=== PATIENT | female | born 1980 | race Caucasian/White ===

== ENCOUNTER 2020-12-04 21:43 | Inpatient (IN) | payer OTHER, SELFPAY ==
[2020-12-04 22:29] VITALS: BMI 22.7
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
--- NOTE | 2020-12-04 23:14 | PC.ADMIT ---
Pt is a 40 year old female who presents to from [facility] at approx 22:15 on a cv status. Pt is covid- Utox+ Female presented to [facility] after intentional OD on Motrin PM (20 Tablets). Pt verbalized that she attepmted to her her life. Pt had two recent suicide attempts in less than a week by overdose with Motrin. Pt stated she is homeless. Pt denied SI/HI/AVH and pain.
[2020-12-05 06:00] VITALS: BP 98/59; PULSE 112; RESP 17; TEMP 36; O2SAT 97
[2020-12-05] MEDS: Gabapentin 600 MG TABLET PO ×3 (09:05→21:10)
[2020-12-05] MEDS: Ziprasidone 40 MG CAPSULE PO ×2 (09:05→21:10)
[2020-12-05] MEDS: Topiramate 25 MG TABLET PO ×2 (09:05→21:10)
[2020-12-05] MEDS: clonazePAM 1 MG TABLET PO ×3 (09:07→21:10)
[2020-12-05] MEDS: Nicotine 21 MG PATCH.TD24 TRANSDERMA (09:13)
[2020-12-05] MEDS: chlorproMAZINE HCl 100 MG TABLET PO ×4 (10:27→23:22)
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
[2020-12-05 16:31] VITALS: BP 112/68; PULSE 117; TEMP 36.7
[2020-12-05] MEDS: Nortriptyline HCl 25 MG CAPSULE PO (21:10)
[2020-12-05] MEDS: LORazepam 1 MG TABLET 2 MG PO (22:00)
[2020-12-05] MEDS: traZODone HCL 50 MG TABLET 150 MG PO ×2 (22:01→23:21)
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
[2020-12-06 06:00] VITALS: BP 105/64; PULSE 120; RESP 16; TEMP 36.6; O2SAT 99
[2020-12-06] MEDS: clonazePAM 1 MG TABLET PO ×3 (08:10→20:12)
[2020-12-06] MEDS: Nicotine 21 MG PATCH.TD24 TRANSDERMA (08:10)
[2020-12-06] MEDS: Gabapentin 600 MG TABLET PO ×3 (08:10→20:12)
[2020-12-06] MEDS: Topiramate 25 MG TABLET PO ×2 (08:11→20:12)
[2020-12-06] MEDS: Ziprasidone 40 MG CAPSULE PO ×2 (08:11→20:12)
[2020-12-06] MEDS: chlorproMAZINE HCl 100 MG TABLET PO ×4 (10:01→20:12)
--- NOTE | 2020-12-06 10:16 | PC.NURSE ---
Pt requested a PRN after not getting in touch with her boyfriend. I don't know why he won't answer. Pt is tearful. When T/W reviewed other coping skills pt stood up and softly started banging her head Immediately redirected. and [id number] PO given. Pt was encouraged to sit in a common area and participate in Arts and [employer] group. Dr Foy notified.
--- NOTE | 2020-12-06 12:24 | HO.PSYCHPN ---
Subjective Subjective Date of Service: 12/06/20 Reason For Visit: SI, Intentional OD Interim History: noted events from last night, where she was buying her head in the context of bad news. reports this is something she has been doing since childhood. Today she reports still feeling upset that her boyfriend broke up with her and that they had gotten engaged today before she came to the hospital. Discussed other coping skills such as art work which is helpful and talking to staff for other people. Is making a bracelet for her son who was at [place]. Reports Thorazine is helpful. Denied SI. Intermittent thoughts of buying her head when feeling frustrated, but able to utilize supportive staff and PRNs if needed Medication Compliance: Yes Side effects from medications: No Review of Systems Acute medical concerns: No Review of Systems Review of Systems No evidence of injury from head banging. Mental Status Exam Mental Status Exam Narrative: hospital clothing. Overall pleasant and engaged. Organized. mood Depressed and tearful. No SI. No HI. Future oriented. No psychosis. Insight and judgment okay Diagnostics Vital Signs (24Hr): Vital Signs - 24 hr 12/05/20 16:31 12/06/20 06:00 Temperature 98.1 F 97.8 F Pulse Rate 117 H 120 H Respiratory Rate 16 Blood Pressure 112/68 105/64 Pulse Oximetry 99 Body Mass Index 22.7 Medications Medications Current Medications Generic Name Dose Route Start Last Admin Trade Name Freq PRN Reason Stop Dose Admin Acetaminophen 650 mg 12/04/20 22:38 Acetaminophen 325 Mg Tablet PO Q6H PRN Headache/Pain Mild Scale (1-3) Al Hydroxide/Mg Hydroxide 30 ml 12/04/20 22:38 Magnesium Hydrox/Alum Hydrox 30 Ml Oral.Susp PO Q6H PRN Heartburn/Nausea Chlorpromazine HCl 100 mg 12/04/20 23:02 12/06/20 10:01 Chlorpromazine Hcl 100 Mg Tablet PO 100 mg TID PRN Administration agitation Clonazepam 1 mg 12/05/20 09:00 12/06/20 08:10 Clonazepam 1 Mg Tablet PO 1 mg TID MY Administration Gabapentin 600 mg 12/05/20 09:00 12/06/20 08:10 Gabapentin 600 Mg Tablet PO 600 mg TID MY Administration Hydroxyzine HCl 25 mg 12/04/20 22:38 Hydroxyzine Hcl 25 Mg Tablet PO Q6H PRN Anxiety Magnesium Hydroxide 30 ml 12/04/20 22:38 Milk Of Magnesia 30 Ml Oral.Susp PO DAILY PRN Constipation Nicotine 21 mg 12/05/20 09:00 12/06/20 08:10 Nicotine 21 Mg Patch.Td24 TRANSDERMA 21 mg DAILY MY Administration Nortriptyline HCl 25 mg 12/05/20 21:00 12/05/20 21:10 Nortriptyline Hcl 25 Mg Capsule PO 25 mg BEDTIME MY Administration Prazosin HCl 2 mg 12/05/20 21:00 12/05/20 21:15 Prazosin Hcl 1 Mg Capsule PO Not Given BEDTIME MY Protocol Topiramate 25 mg 12/05/20 09:00 12/06/20 08:11 Topiramate 25 Mg Tablet PO 25 mg BID MY Administration Trazodone HCl 150 mg 12/05/20 21:00 12/05/20 23:21 Trazodone Hcl 50 Mg Tablet PO 100 mg BEDTIME MY Administration Ziprasidone 40 mg 12/05/20 09:00 12/06/20 08:11 Ziprasidone 40 Mg Capsule PO 40 mg BID MY Administration Allergies Allergies Allergy/AdvReac Type Severity Reaction Status Date / Time No Known Allergies Allergy Unverified 12/04/20 22:36 Assessment & Plan Assessment & Plan (1) Polysubstance (including opioids) dependence w/o physiol dependence: Status: Acute Code(s): F19.20 - Other psychoactive substance dependence, uncomplicated (2) Bipolar 1 disorder: Status: Acute Code(s): F31.9 - Bipolar disorder, unspecified (3) Generalized anxiety disorder: Status: Acute Code(s): F41.1 - Generalized anxiety disorder Assessment and Plan: Pt is a 40 y.o. Female who carries a dx of polysubstance use disorder, bipolar disorder. She presented to [facility] after intentional OD on motrin PM as a suicide attempt. She is currently presenting with depressed mood, recent AH (not command), anxiety, poor sleep, and agitation/ irritability. She has multiple psychosocial stressors including homelessness. Recent treatment for polysubstance use, was on [address] 35 and in residential placement but kicked out due to aggressive behaviors. Says she has had two recent hospitalizations and that her meds were stopped/ dosages lowered and she now feels unstable. She asks for her medications to be re-increased and for her geodon, trazodone, and prazosin to be re-started. She is not open to new med trials at this time. Utox negative on arrival, BAL negative. Plan: 1. Re-start prazosin 2 mg QHS for nightmares, PTSD, hyperarousal 2. Re-start trazodone at 150 mg QHS for insomnia 3. Re-start geodon 40 mg BID for mood stability, AH due to reported benefit 4. Increase gabapentin to 600 mg TID for mood stability, agitation 5. Continue thorazine at 100 mg TID PRN for agitation, as she prefers this as a PRN due to sedation.? 6. Continue topamax 25 mg BID and nortriptyline 25 mg QHS, takes these for migraines- I encouraged her to discuss dosing with hospitalist. 7. Continue klonopin 1 mg TID for anxiety, Masspat reviewed, has been prescribed this by OP prescriber and filling this regularly. 8. Monitor response to medications. Monitor for safety in the milieu. Discharge on stabilization. Patient seen. Chart reviewed. Discussed with team. Obtain collateral contact info?as needed 12/06 this unit I do/2020: No changes to primary team treatment plan Greater than 50% of the session was spent on counseling and/or coordination of care Reason for contiued inpatient stay Substantial Risk for: harm to self
[2020-12-06] MEDS: Nortriptyline HCl 25 MG CAPSULE PO (20:12)
[2020-12-06] MEDS: LORazepam 1 MG TABLET 2 MG PO (20:39)
[2020-12-06] MEDS: traZODone HCL 50 MG TABLET 150 MG PO (21:27)
[2020-12-06 22:07] VITALS: BP 88/56; PULSE 116
[2020-12-06 22:09] VITALS: BP 96/54; PULSE 80; RESP 16
[2020-12-06] MEDS: LORazepam 2 MG/ML VIAL IM (22:17)
--- NOTE | 2020-12-06 22:28 | PM.EVENT ---
Event Note Date of Service: 12/06/20 Event Note: Agitation: Patient has an episode of agitation around 10:00 p.m. on 12/06/2020. Per RN patient was given Thorazine and Ativan from the patient's psychiatric team I went in for [id number] evaluation; patient breathing comfortably, lying in the bed; crying. Denies any complaints. Signed the [id number] evaluation form.
[2020-12-06 22:40] VITALS: BP 112/72; PULSE 86; RESP 16
[2020-12-06 22:55] VITALS: BP 94/55; PULSE 85; RESP 16; TEMP 36.8
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
[2020-12-07 06:00] VITALS: BP 85/53; PULSE 115; RESP 18; TEMP 36.4; O2SAT 93
[2020-12-07] MEDS: Topiramate 25 MG TABLET PO (09:23)
[2020-12-07] MEDS: Gabapentin 600 MG TABLET PO ×2 (09:23→14:17)
[2020-12-07] MEDS: Nicotine 21 MG PATCH.TD24 TRANSDERMA (09:24)
[2020-12-07] MEDS: Ziprasidone 40 MG CAPSULE PO (09:24)
[2020-12-07] MEDS: clonazePAM 1 MG TABLET PO ×2 (09:24→14:17)
[2020-12-07] MEDS: Acetaminophen 325 MG TABLET 650 MG PO (09:30)
[2020-12-07] MEDS: hydrOXYzine HCL 25 MG TABLET PO (11:33)
--- NOTE | 2020-12-07 12:24 | P.PNPSI_ITS ---
Subjective Subjective Date of Service: 12/07/20 Reason For Visit: SI, Intentional OD Interim History: there was some head banging yesterday, but much less intense than the day before. Utilizing Thorazine. Much less tearful today. Is reporting feeling more supported on the unit. Slept much better yesterday. Denies SI. Denies psychosis.Reports feeling like she will need another substance program or support program to maintain sobriety after discharge. Medication Compliance: Yes Side effects from medications: No Review of Systems Acute medical concerns: No Review of Systems Review of Systems noncontributory Mental Status Exam Mental Status Exam Narrative: hospital clothing. Overall pleasant and engaged. Organized. mood Depressed and tearful. No SI. No HI. Future oriented. No psychosis. In sight and judgment okay Diagnostics Vital Signs (24Hr): Vital Signs - 24 hr 12/06/20 22:07 12/06/20 22:09 12/06/20 22:40 Temperature Pulse Rate 116 H 80 86 Respiratory Rate 16 16 Blood Pressure 88/56 L 96/54 L 112/72 Pulse Oximetry 12/06/20 22:55 12/07/20 06:00 Temperature 98.2 F 97.6 F Pulse Rate 85 115 H Respiratory Rate 16 18 Blood Pressure 94/55 L 85/53 L Pulse Oximetry 93 Body Mass Index 22.7 Medications Medications Current Medications Generic Name Dose Route Start Last Admin Trade Name Freq PRN Reason Stop Dose Admin Acetaminophen 650 mg 12/04/20 22:38 12/07/20 09:30 Acetaminophen 325 Mg Tablet PO 650 mg Q6H PRN Administration Headache/Pain Mild Scale (1-3) Al Hydroxide/Mg Hydroxide 30 ml 12/04/20 22:38 Magnesium Hydrox/Alum Hydrox 30 Ml Oral.Susp PO Q6H PRN Heartburn/Nausea Chlorpromazine HCl 100 mg 12/04/20 23:02 12/06/20 20:12 Chlorpromazine Hcl 100 Mg Tablet PO 100 mg TID PRN Administration agitation Clonazepam 1 mg 12/05/20 09:00 12/07/20 09:24 Clonazepam 1 Mg Tablet PO 1 mg TID MY Administration Gabapentin 600 mg 12/05/20 09:00 12/07/20 09:23 Gabapentin 600 Mg Tablet PO 600 mg TID MY Administration Hydroxyzine HCl 25 mg 12/04/20 22:38 12/07/20 11:33 Hydroxyzine Hcl 25 Mg Tablet PO 25 mg Q6H PRN Administration Anxiety Magnesium Hydroxide 30 ml 12/04/20 22:38 Milk Of Magnesia 30 Ml Oral.Susp PO DAILY PRN Constipation Nicotine 21 mg 12/05/20 09:00 12/07/20 09:24 Nicotine 21 Mg Patch.Td24 TRANSDERMA 21 mg DAILY MY Administration Nortriptyline HCl 25 mg 12/05/20 21:00 12/06/20 20:12 Nortriptyline Hcl 25 Mg Capsule PO 25 mg BEDTIME MY Administration Prazosin HCl 2 mg 12/05/20 21:00 12/06/20 22:07 Prazosin Hcl 1 Mg Capsule PO Not Given BEDTIME MY Protocol Topiramate 25 mg 12/05/20 09:00 12/07/20 09:23 Topiramate 25 Mg Tablet PO 25 mg BID MY Administration Trazodone HCl 150 mg 12/05/20 21:00 12/06/20 21:27 Trazodone Hcl 50 Mg Tablet PO 150 mg BEDTIME MY Administration Ziprasidone 40 mg 12/05/20 09:00 12/07/20 09:24 Ziprasidone 40 Mg Capsule PO 40 mg BID MY Administration Allergies Allergies Allergy/AdvReac Type Severity Reaction Status Date / Time No Known Allergies Allergy Unverified 12/04/20 22:36 Assessment & Plan Assessment & Plan (1) Polysubstance (including opioids) dependence w/o physiol dependence: Status: Acute Code(s): F19.20 - Other psychoactive substance dependence, uncomplicated (2) Bipolar 1 disorder: Status: Acute Code(s): F31.9 - Bipolar disorder, unspecified (3) Generalized anxiety disorder: Status: Acute Code(s): F41.1 - Generalized anxiety disorder Assessment and Plan: Pt is a 40 y.o. Female who carries a dx of polysubstance use disorder, bipolar disorder. She presented to [facility] after intentional OD on motrin PM as a suicide attempt. She is currently presenting with depressed mood, recent AH (not command), anxiety, poor sleep, and agitation/ irritability. She has multiple psychosocial stressors including homelessness. Recent treatment for polysubstance use, was on [address] [facility] and in residential placement but kicked out due to aggressive behaviors. Says she has had two recent hospitalizations and that her meds were stopped/ dosages lowered and she now feels unstable. She asks for her medications to be re-increased and for her geodon, trazodone, and prazosin to be re-started. She is not open to new med trials at this time. Utox negative on arrival, BAL negative. Plan: 1. Re-start prazosin 2 mg QHS for nightmares, PTSD, hyperarousal 2. Re-start trazodone at 150 mg QHS for insomnia 3. Re-start geodon 40 mg BID for mood stability, AH due to reported benefit 4. Increase gabapentin to 600 mg TID for mood stability, agitation 5. Continue thorazine at 100 mg TID PRN for agitation, as she prefers this as a PRN due to sedation.? 6. Continue topamax 25 mg BID and nortriptyline 25 mg QHS, takes these for migraines- I encouraged her to discuss dosing with hospitalist. 7. Continue klonopin 1 mg TID for anxiety, [place] reviewed, has been prescribed this by OP prescriber and filling this regularly. 8. Monitor response to medications. Monitor for safety in the milieu. Discharge on stabilization. Patient seen. Chart reviewed. Discussed with team. Obtain collateral contact info?as needed 12/07/20: monitor Thorazine use and if this is being utilized consistently,consider scheduling same and perhaps rationalizing other medications. Patient feels she may need another substance treatment program or supportive program to maintain sobriety after discharge Greater than 50% of the session was spent on counseling and/or coordination of care Reason for contiued inpatient stay Substantial Risk for: harm to self
[2020-12-07] MEDS: chlorproMAZINE HCl 100 MG TABLET PO ×2 (13:23→14:50)
[2020-12-07 20:34] VITALS: BP 104/57; PULSE 69; TEMP 36.1
[2020-12-08] MEDS: chlorproMAZINE HCl 100 MG TABLET PO ×2 (05:00→12:15)
[2020-12-08 06:00] VITALS: BP 116/55; PULSE 114; RESP 16; TEMP 36.5; O2SAT 97
[2020-12-08] MEDS: Topiramate 25 MG TABLET PO ×2 (08:36→20:57)
[2020-12-08] MEDS: Gabapentin 600 MG TABLET PO ×4 (08:36→20:57)
[2020-12-08] MEDS: clonazePAM 1 MG TABLET PO ×3 (08:36→20:57)
[2020-12-08] MEDS: Ziprasidone 40 MG CAPSULE PO ×2 (08:36→20:56)
[2020-12-08] MEDS: Nicotine 21 MG PATCH.TD24 TRANSDERMA (09:49)
--- NOTE | 2020-12-08 14:14 | HO.HSGERICON ---
History of Present Illness Data of Consult Service Date: 12/08/20 Primary Care Provider: Unknown Physician HPI Reason for consult: Routine medical exam This is a 40 yo F with a PMH as outlined below who is admitted to the inpatient psychiatric unit. Medical services consulted for routine medical H&P. The patient is seen and examined on M5. She has no current medical complaints. Review of Systems Review of Systems: General - no fevers or chills Cardiovascular - no chest pain Respiratory - no shortness of breath or cough Abdominal- no abdominal pain, nausea, vomiting, diarrhea PMFSH Medical History (Updated 12/08/20 @ 14:16 by Sylvain Houser MD) No significant medical problems Pertinent family history: Denies any known medical history in family Surgical History (Updated 12/08/20 @ 14:16 by Sylvain Houser MD) History of cholecystectomy Social History Household Members: None Housing: Homeless Do you presently have visiting nurse or other home services: No Patient Tobacco Use Status: Current everyday Tobacco user Tobacco use type: Cigarette Cigarette Packs Per Day: 1 Cigarettes Per Day: 20.0 Years Smoked: 20 Smoked in Last 30 Days: Yes Patient Interested in Nicotine Replacement: Yes Patient Given Instructions on How to Stop Smoking: Yes Date Education Initiated: 12/04/20 Second Hand Smoke Exposure: Yes Substance Use Type: Marijuana and Methamphetamine Substance Use Frequency: Socially Currently Displaying Signs/Symptoms of Drug Intoxication Withdrawal: No Any prior treatment program specific to substance use: No Have you been hit, kicked, punched, or otherwise hurt by someone within the past year? If so, by whom?: No Do you feel safe in your current relationship?: Yes Is there a partner from a previous relationship who is making you feel unsafe now?: No Are you made to feel afraid or neglected: No Advance Directives: No Advance Directives Information Provided: No Do you have thoughts of harming others: None Do you have a plan to hurt others: No Plan Recently lost weight without trying: No Eating poorly because of decreased appetite: No Nutrition Risks: No Nutritional Risk Patient : No : No Poor oral hygiene: No service: No Sexual orientation: Cisgender Meds Allergies Allergy/AdvReac Type Severity Reaction Status Date / Time No Known Allergies Allergy Unverified 12/04/20 22:36 Active Medications: Current Medications Generic Name Dose Route Start Last Admin Trade Name Freq PRN Reason Stop Dose Admin Acetaminophen 650 mg 12/04/20 22:38 12/07/20 09:30 Acetaminophen 325 Mg Tablet PO 650 mg Q6H PRN Administration Headache/Pain Mild Scale (1-3) Al Hydroxide/Mg Hydroxide 30 ml 12/04/20 22:38 Magnesium Hydrox/Alum Hydrox 30 Ml Oral.Susp PO Q6H PRN Heartburn/Nausea Chlorpromazine HCl 100 mg 12/04/20 23:02 12/08/20 12:15 Chlorpromazine Hcl 100 Mg Tablet PO 100 mg TID PRN Administration agitation Clonazepam 1 mg 12/05/20 09:00 12/08/20 08:36 Clonazepam 1 Mg Tablet PO 1 mg TID MY Administration Gabapentin 600 mg 12/05/20 09:00 12/08/20 08:36 Gabapentin 600 Mg Tablet PO 600 mg TID MY Administration Hydroxyzine HCl 25 mg 12/04/20 22:38 12/07/20 11:33 Hydroxyzine Hcl 25 Mg Tablet PO 25 mg Q6H PRN Administration Anxiety Magnesium Hydroxide 30 ml 12/04/20 22:38 Milk Of Magnesia 30 Ml Oral.Susp PO DAILY PRN Constipation Nicotine 21 mg 12/05/20 09:00 12/08/20 09:49 Nicotine 21 Mg Patch.Td24 TRANSDERMA 21 mg DAILY MY Administration Nortriptyline HCl 25 mg 12/05/20 21:00 12/08/20 05:06 Nortriptyline Hcl 25 Mg Capsule PO Not Given BEDTIME MY Prazosin HCl 2 mg 12/05/20 21:00 12/06/20 22:07 Prazosin Hcl 1 Mg Capsule PO Not Given BEDTIME MY Protocol Topiramate 25 mg 12/05/20 09:00 12/08/20 08:36 Topiramate 25 Mg Tablet PO 25 mg BID MY Administration Trazodone HCl 150 mg 12/05/20 21:00 12/08/20 05:08 Trazodone Hcl 50 Mg Tablet PO Not Given BEDTIME MY Ziprasidone 40 mg 12/05/20 09:00 12/08/20 08:36 Ziprasidone 40 Mg Capsule PO 40 mg BID MY Administration Assessment and Plan (1) No significant medical problems: Status: Inactive This is a 40 yo F admitted to the inpatient psychiatric unit. Medical services consulted for routine medical H&P. Patient does not appear to have any chronic medical issues nor any major active issues. Her vitals reveal that she is intermittently tachycardic. This could be related to intermittent agitation or anxiety (she required sedation a few days back). If not done so already, would check TSH and EKG. Will sign off at this point. Please re-consult if any issues arise. Thank you. Physical Exam Vital Signs: Last Vital Signs Temp 97.7 F 12/08/20 06:00 Pulse 114 H 12/08/20 06:00 Resp 16 12/08/20 06:00 BP 116/55 L 12/08/20 06:00 Pulse Ox 97 12/08/20 06:00 Body Mass Index 22.7 Const Other: General - no acute distress, appears comfortable Cardiovascular - regular rate and rhythm, S1-S2 Lungs - normal respiratory effort, clear to auscultation bilaterally, no wheezing Abdomen - soft, nontender, no rebound or guarding Extremities - no edema bilaterally Neuro - awake and alert, no focal deficits Neuro Cranial nerves: Yes CN's II-XII intact bilaterally
--- NOTE | 2020-12-08 16:37 | P.PNPSI_ITS ---
Subjective Subjective Date of Service: 12/08/20 Reason For Visit: SI, Intentional OD Healthcare Proxy: No Guardianship: No Medical Problems Affecting Mental Status: No Interim History: Zeina with significant sadness and distress. 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 Reviewed [facility] completed in August. Since that time she describes program hopping . Hopes [facility] to [facility]-talked with them today and will continue the process. Reports poor sleep quality and appetite at 50%. Discussed concern that Geodon is low (hx 80 mg bid), Topiramate is low (300 mg daily), Prazosin is low (3 mg daily) (discussed hypotension and keeping this at 2 mg or lower currently), Gabapentin 600 mg QID-will titrated, Klonopin 1 mg tid-wanting more-discussed longer half life and that more will not help. Review CPZ which she asks to stop. Agrees to replace with Olanzapine prn Discussed being threatened at another program and throwing coffee at a peer-no charges pending-discussed managing and modulating affective impulses. Medication Compliance: Yes Side effects from medications: No Attending Groups: Intermittent Review of Systems Acute medical concerns: No Medical Review of Systems: unchanged Review of Systems Reports behavioral changes Psychiatric: Reports abnormal sleep pattern, Reports anxiety, Reports behavioral changes, Reports change in appetite, Reports depression, Reports difficulty concentrating, Reports hopelessness, Reports irritability, Reports anhedonia, Reports mood swings, Reports panic attacks, Reports paranoia and Reports suicidal ideation Mental Status Exam Mental Status Exam Patient Appearance: Fatigued and Disheveled Patient Orientation: Person, Place and Time Level of Consciousness: Alert Patient Behavior: Appropriate, Talkative, Cooperative, Fatigued, Distractible and Poor Eye Contact Mood Description: Depressed Affect Description: Depressed and Flat Patient Cognition Impaired: No Ability to Follow Directions: Good Speech Pattern: Spontaneous Speech Memory Description: Episodic Impaired Hallucinations: Auditory Delusions: Paranoid Ideation and Present Perceptual Disturbances: Depersonalization and Derealization Thought Process: Rumination Thought Content: positive for [place] and positive for Circumstantial Depressive Symptoms: Increased Anxiety, Insomnia, Diff. Making Decisions, Increased Irritability, Difficulty Sleeping, Changes in Appetite, Loss of Int. in Activity, Feelings of Worthlessness, Hopelessness, Increased Fatigue, Thoughts of /Suicide, Low Self Esteem and Loss of Energy Judgement: Fair Diagnostics Vital Signs (24Hr): Vital Signs - 24 hr 12/07/20 20:34 12/08/20 06:00 Temperature 97.0 F 97.7 F Pulse Rate 69 114 H Respiratory Rate 16 Blood Pressure 104/57 L 116/55 L Pulse Oximetry 97 Body Mass Index 22.7 Medications Medications Current Medications Generic Name Dose Route Start Last Admin Trade Name Freq PRN Reason Stop Dose Admin Acetaminophen 650 mg 12/04/20 22:38 12/07/20 09:30 Acetaminophen 325 Mg Tablet PO 650 mg Q6H PRN Administration Headache/Pain Mild Scale (1-3) Al Hydroxide/Mg Hydroxide 30 ml 12/04/20 22:38 Magnesium Hydrox/Alum Hydrox 30 Ml Oral.Susp PO Q6H PRN Heartburn/Nausea Clonazepam 1 mg 12/05/20 09:00 12/08/20 14:28 Clonazepam 1 Mg Tablet PO 1 mg TID MY Administration Gabapentin 600 mg 12/08/20 17:00 Gabapentin 600 Mg Tablet PO QID MY Hydroxyzine HCl 25 mg 12/04/20 22:38 12/07/20 11:33 Hydroxyzine Hcl 25 Mg Tablet PO 25 mg Q6H PRN Administration Anxiety Magnesium Hydroxide 30 ml 12/04/20 22:38 Milk Of Magnesia 30 Ml Oral.Susp PO DAILY PRN Constipation Nicotine 21 mg 12/05/20 09:00 12/08/20 09:49 Nicotine 21 Mg Patch.Td24 TRANSDERMA 21 mg DAILY MY Administration Nortriptyline HCl 25 mg 12/05/20 21:00 12/08/20 05:06 Nortriptyline Hcl 25 Mg Capsule PO Not Given BEDTIME MY Olanzapine 5 mg 12/08/20 14:52 Olanzapine 5 Mg Tablet PO BID PRN agitation Prazosin HCl 2 mg 12/05/20 21:00 12/06/20 22:07 Prazosin Hcl 1 Mg Capsule PO Not Given BEDTIME MY Protocol Topiramate 25 mg 12/05/20 09:00 12/08/20 08:36 Topiramate 25 Mg Tablet PO 25 mg BID MY Administration Trazodone HCl 150 mg 12/05/20 21:00 12/08/20 05:08 Trazodone Hcl 50 Mg Tablet PO Not Given BEDTIME MY Ziprasidone 40 mg 12/05/20 09:00 12/08/20 08:36 Ziprasidone 40 Mg Capsule PO 40 mg BID MY Administration Allergies Allergies Allergy/AdvReac Type Severity Reaction Status Date / Time No Known Allergies Allergy Unverified 12/04/20 22:36 Assessment & Plan Assessment & Plan (1) Generalized anxiety disorder: Status: Acute Code(s): F41.1 - Generalized anxiety disorder (2) Bipolar 1 disorder: Status: Acute Code(s): F31.9 - Bipolar disorder, unspecified (3) Polysubstance (including opioids) dependence w/o physiol dependence: Status: Acute Code(s): F19.20 - Other psychoactive substance dependence, uncomplicated Assessment and Plan: Pt looking to the future, making plan to hopefully attend [facility]. Discussed medications, dosing, titration planning. Olanzapine 5 mg bid prn. Discontinue Chlorpromazine Continue Geodon, Topiramate, Prazosin, Nortriptyline, Klonopin Increase Gabapentin to 600 mg qid CBCD, CMP, TSH, Lipid Panel, A1C, B12, Folate, EKG Greater than 50% of the session was spent on counseling and/or coordination of care Patient educated on: diagnosis, medication risk/benefits, substance abuse and therapeutic strategies Informed Consent: understands and further education needed Reason for contiued inpatient stay Substantial Risk for: harm to self, harm to others, inability to function and rapid decompensation
[2020-12-08] MEDS: hydrOXYzine HCL 25 MG TABLET PO (18:48)
[2020-12-08] MEDS: OLANZapine 5 MG TABLET PO (18:48)
[2020-12-08 20:56] VITALS: BP 117/71; PULSE 115
[2020-12-08] MEDS: Prazosin HCL 1 MG CAPSULE 2 MG PO (20:56)
[2020-12-08] MEDS: Nortriptyline HCl 25 MG CAPSULE PO (20:57)
[2020-12-08] MEDS: traZODone HCL 50 MG TABLET 150 MG PO (21:20)
[2020-12-09 06:00] VITALS: BP 139/85; PULSE 87; RESP 16; TEMP 36.5; O2SAT 99
--- NOTE | 2020-12-09 07:00 | ECG_ITS ---
Test Reason : ATYPICAL USE Blood Pressure : / mmHG Vent. Rate : 085 BPM Atrial Rate : 085 BPM P-R Int : 152 ms QRS Dur : 090 ms QT Int : 370 ms P-R-T Axes : 063 038 059 degrees QTc Int : 440 ms Normal sinus rhythm Normal ECG No previous ECGs available Referred By: Luzma Paredes Electronically Signed By:PERICO BAR
[2020-12-09 08:31] LABS: MANUAL DIFF FLAG NO
[2020-12-09 08:33] LABS: Basophils Absolute Auto 0.1 X10*3/uL (0.0-0.2); Basophils Percent Auto 0.5 % (0-2); Eosinophils Absolute Auto 0.3 X10*3/uL (0.0-0.4); Eosinophils Percent Auto 3.4 % (0-4); Hematocrit 36.8 % (37-47); Hemoglobin 12.1 g/dl (12.0-16.0); Imm Gran Abs Auto 0.03 X10*3/uL (0.00-0.03); Imm Gran Pct Auto 0.3 % (0.0-0.4); Lymphocytes Absolute Auto 2.6 X10*3/uL (1.2-4.9); Lymphocytes Percent Auto 25.8 % (20-40); Mean Corpuscular HGB Conc 32.9 g/dl (31.0-35.0); Mean Corpuscular Hemoglobin 31.3 pg (27.0-33.0); Mean Corpuscular Volume 95.3 fL (80-98); Monocytes Absolute Auto 0.8 X10*3/uL (0.1-1.2); Monocytes Percent Auto 8.5 % (2-11); Neutrophils Absolute Auto 6.1 X10*3/uL (2.0-8.3); Neutrophils Percent Auto 61.5 % (45-73); Platelet Count 228 X10*3/uL (160-400); Red Blood Count 3.86 X10*6/uL (4.20-5.50); White Blood Count 9.9 X10*3/uL (4.8-10.8)
[2020-12-09 08:50] LABS: Estimated Average Glucose 88 mg/dL; Hemoglobin A1c % 4.7 %
[2020-12-09 08:54] LABS: Alanine Aminotransferase 17 U/L (0-31); Albumin Level 4.1 g/dL (3.5-5.0); Alkaline Phosphatase 60 U/L (39-117); Anion Gap 10 (12-20); Aspartate Amino Transferase 21 U/L (5-31); Bilirubin Total 0.4 mg/dL (0.0-1.0); Blood Urea Nitrogen 13 mg/dL (9-16); Calcium 9.4 mg/dL (8.4-10.2); Carbon Dioxide 27 mmol/L (22-29); Chloride 107 mmol/L (96-108); Cholesterol 156 mg/dL; Creatinine Clr Calc Pharmacy 63.9; Estimated Glomerular Filt Rate > 60; Glucose Random 85 mg/dL (60-115); HDL Cholesterol 51 mg/dL; LDL Cholesterol Calculated 93 mg/dl; Potassium 4.4 mmol/L (3.3-5.1); Sodium 140 mmol/L (135-145); Total Protein 6.8 g/dL (6.5-8.0); Triglycerides 64 mg/dL
[2020-12-09] MEDS: Topiramate 25 MG TABLET PO ×2 (09:02→20:40)
[2020-12-09] MEDS: Nicotine 21 MG PATCH.TD24 TRANSDERMA (09:03)
[2020-12-09] MEDS: Ziprasidone 40 MG CAPSULE PO ×2 (09:03→20:40)
[2020-12-09] MEDS: Gabapentin 600 MG TABLET PO ×3 (09:03→20:41)
[2020-12-09] MEDS: clonazePAM 1 MG TABLET PO ×3 (09:03→20:40)
[2020-12-09 09:14] LABS: Thyroid Stimulating Hormone 1.18 uIU/mL (0.32-4.0)
[2020-12-09 09:35] LABS: Folate 14.7 ng/mL (> or = 4.0); Vitamin B12 555 pg/mL (200-900)
[2020-12-09] MEDS: hydrOXYzine HCL 25 MG TABLET PO (10:34)
[2020-12-09] MEDS: OLANZapine 5 MG TABLET PO (10:34)
--- NOTE | 2020-12-09 13:45 | PC.NURSE ---
3 Day Notice signed today 12/09/20, up 12/14/20. All staff notified.
--- NOTE | 2020-12-09 16:58 | HO.PSYCHPN ---
Subjective Subjective Date of Service: 12/09/20 Reason For Visit: SI, Intentional OD Subjective Notes: 3 Day (12/14/20) Healthcare Proxy: No Guardianship: No Interim History: Zeina declined to have a formal meeting today with health science writer. She reports she is feeling triggered in the milieu and prefers to keep her contacts minimal today. Medication Compliance: Yes Side effects from medications: No Attending Groups: Intermittent Review of Systems Acute medical concerns: No Medical Review of Systems: unchanged Review of Systems Reports behavioral changes Psychiatric: Reports abnormal sleep pattern, Reports anxiety, Reports behavioral changes, Reports change in appetite, Reports depression, Reports difficulty concentrating, Reports irritability, Reports anhedonia, Reports mood swings, Reports panic attacks, Reports paranoia and Reports suicidal ideation Mental Status Exam Mental Status Exam Patient Appearance: Appropriate Patient Orientation: Person, Place, Time and Situation Level of Consciousness: Alert Patient Behavior: Guarded, Avoidant and Isolative Mood Description: Withdrawn, Depressed, Fearful, Anxious and Apprehensive Affect Description: Flat Patient Cognition Impaired: No Ability to Follow Directions: Good Speech Pattern: Spontaneous Speech Memory Description: Episodic Impaired Hallucinations: None Delusions: Not Present Perceptual Disturbances: Depersonalization and Derealization Thought Process: Distracted and Goal Oriented Thought Content: positive for Goal Oriented, positive for Preoccupation and positive for Suicidal Ideation Depressive Symptoms: Increased Anxiety, Increased Irritability, Thoughts of /Suicide and Difficulty Concentrating Judgement: Fair Diagnostics Vital Signs (24Hr): Vital Signs - 24 hr 12/08/20 20:56 12/09/20 06:00 Temperature 97.7 F Pulse Rate 115 H 87 Respiratory Rate 16 Blood Pressure 117/71 139/85 Pulse Oximetry 99 Body Mass Index 22.7 Labs Results: 12/09/20 08:13 12/09/20 08:13 Labs: Laboratory Results - last 48 hr 12/09/20 12/09/20 12/09/20 08:13 08:13 08:13 WBC 9.9 RBC 3.86 L Hgb 12.1 Hct 36.8 L MCV 95.3 MCH 31.3 MCHC 32.9 RDW 12.0 Plt Count 228 MPV 10.0 Immature Gran % (Auto) 0.3 Neut % (Auto) 61.5 Lymph % (Auto) 25.8 [place] % (Auto) 8.5 Eos % (Auto) 3.4 Baso % (Auto) 0.5 Lymph # (Auto) 2.6 [place] # (Auto) 0.8 Eos # (Auto) 0.3 Baso # (Auto) 0.1 Abs Immat Gran (auto) 0.03 Absolute Neuts (auto) 6.1 Absolute Nucleated RBC 0.000 Nucleated RBC % (auto) 0.0 Sodium 140 Potassium 4.4 Chloride 107 Carbon Dioxide 27 Anion Gap 10 L BUN 13 Creatinine 1.01 Estim Creat Clear Calc 63.9 Estimated GFR > 60 Random Glucose 85 Estimat Average Glucose 88 Hemoglobin A1c % 4.7 Calcium 9.4 Total Bilirubin 0.4 AST 21 ALT 17 Alkaline Phosphatase 60 Total Protein 6.8 Albumin 4.1 Triglycerides 64 Cholesterol 156 LDL Cholesterol, Calc 93 HDL Cholesterol 51 Vitamin B12 Folate TSH 1.18 12/09/20 08:13 WBC RBC Hgb Hct MCV MCH MCHC RDW Plt Count MPV Immature Gran % (Auto) Neut % (Auto) Lymph % (Auto) [place] % (Auto) Eos % (Auto) Baso % (Auto) Lymph # (Auto) [place] # (Auto) Eos # (Auto) Baso # (Auto) Abs Immat Gran (auto) Absolute Neuts (auto) Absolute Nucleated RBC Nucleated RBC % (auto) Sodium Potassium Chloride Carbon Dioxide Anion Gap BUN Creatinine Estim Creat Clear Calc Estimated GFR Random Glucose Estimat Average Glucose Hemoglobin A1c % Calcium Total Bilirubin AST ALT Alkaline Phosphatase Total Protein Albumin Triglycerides Cholesterol LDL Cholesterol, Calc HDL Cholesterol Vitamin B12 555 Folate 14.7 TSH Medications Medications Current Medications Generic Name Dose Route Start Last Admin Trade Name Freq PRN Reason Stop Dose Admin Acetaminophen 650 mg 12/04/20 22:38 12/07/20 09:30 Acetaminophen 325 Mg Tablet PO 650 mg Q6H PRN Administration Headache/Pain Mild Scale (1-3) Al Hydroxide/Mg Hydroxide 30 ml 12/04/20 22:38 Magnesium Hydrox/Alum Hydrox 30 Ml Oral.Susp PO Q6H PRN Heartburn/Nausea Clonazepam 1 mg 12/05/20 09:00 12/09/20 14:37 Clonazepam 1 Mg Tablet PO 1 mg TID MY Administration Gabapentin 600 mg 12/08/20 17:00 12/09/20 14:37 Gabapentin 600 Mg Tablet PO 600 mg QID MY Administration Hydroxyzine HCl 25 mg 12/04/20 22:38 12/09/20 10:34 Hydroxyzine Hcl 25 Mg Tablet PO 25 mg Q6H PRN Administration Anxiety Magnesium Hydroxide 30 ml 12/04/20 22:38 Milk Of Magnesia 30 Ml Oral.Susp PO DAILY PRN Constipation Nicotine 21 mg 12/05/20 09:00 12/09/20 09:03 Nicotine 21 Mg Patch.Td24 TRANSDERMA 21 mg DAILY MY Administration Nortriptyline HCl 25 mg 12/05/20 21:00 12/08/20 20:57 Nortriptyline Hcl 25 Mg Capsule PO 25 mg BEDTIME MY Administration Olanzapine 5 mg 12/08/20 14:52 12/09/20 10:34 Olanzapine 5 Mg Tablet PO 5 mg BID PRN Administration agitation Prazosin HCl 2 mg 12/05/20 21:00 12/08/20 20:56 Prazosin Hcl 1 Mg Capsule PO 2 mg BEDTIME MY Administration Protocol Topiramate 25 mg 12/05/20 09:00 12/09/20 09:02 Topiramate 25 Mg Tablet PO 25 mg BID MY Administration Trazodone HCl 150 mg 12/05/20 21:00 12/08/20 21:20 Trazodone Hcl 50 Mg Tablet PO 150 mg BEDTIME MY Administration Ziprasidone 40 mg 12/05/20 09:00 12/09/20 09:03 Ziprasidone 40 Mg Capsule PO 40 mg BID MY Administration Allergies Allergies Allergy/AdvReac Type Severity Reaction Status Date / Time No Known Allergies Allergy Unverified 12/04/20 22:36 Assessment & Plan Assessment & Plan (1) Generalized anxiety disorder: Status: Acute Code(s): F41.1 - Generalized anxiety disorder (2) Bipolar 1 disorder: Status: Acute Code(s): F31.9 - Bipolar disorder, unspecified (3) Polysubstance (including opioids) dependence w/o physiol dependence: Status: Acute Code(s): F19.20 - Other psychoactive substance dependence, uncomplicated Assessment and Plan: Continue current regime. Allow pt space as she has requested today. Available as needed for her to discuss sx. Aftercare planning. Greater than 50% of the session was spent on counseling and/or coordination of care Reason for contiued inpatient stay Substantial Risk for: harm to self, inability to function and rapid decompensation
[2020-12-09 18:00] VITALS: BP 122/88; PULSE 70; RESP 18; TEMP 36.3; O2SAT 99
[2020-12-09] MEDS: traZODone HCL 50 MG TABLET 150 MG PO (20:40)
[2020-12-09] MEDS: Nortriptyline HCl 25 MG CAPSULE PO (20:40)
[2020-12-09 20:42] VITALS: BP 122/88; PULSE 70
[2020-12-09] MEDS: Prazosin HCL 1 MG CAPSULE 2 MG PO (20:42)
[2020-12-10] MEDS: Topiramate 25 MG TABLET PO (08:12)
[2020-12-10] MEDS: Gabapentin 600 MG TABLET PO ×3 (08:12→16:09)
[2020-12-10] MEDS: clonazePAM 1 MG TABLET PO ×2 (08:14→14:31)
[2020-12-10] MEDS: Nicotine 21 MG PATCH.TD24 TRANSDERMA (08:15)
[2020-12-10] MEDS: Ziprasidone 40 MG CAPSULE PO (08:30)
[2020-12-10] MEDS: OLANZapine 5 MG TABLET PO ×2 (10:49→16:09)
[2020-12-10] MEDS: Buprenorphine/Naloxone 4/1 mg FILM 1 FILM SUBLINGUAL (14:31)
[2020-12-10 16:28] VITALS: BP 117/75; PULSE 99; TEMP 36.8
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
--- NOTE | 2020-12-10 17:08 | HO.PSYCHPN ---
Subjective Subjective Date of Service: 12/10/20 Reason For Visit: SI, Intentional OD Subjective Notes: 3 Day Healthcare Proxy: No Guardianship: No Medical Problems Affecting Mental Status: No Interim History: Pt reports she will return to her partner in fall. Team is helping her make out pt appts. Discussed how triggering current milieu is for her and her difficulty with this. Full med review completed. Geodon and Olanzapine titrations completed with her approval for increased efficacy in symptom mgt. Pt met with addictions team as well to review current needs. Reports head banging, scratching her forearm with a fork, having flashbacks, racing thoughts-believes additional atypicals and Suboxone re-start will assist in mgt of sx. Medication Compliance: Yes Side effects from medications: No Attending Groups: Yes Review of Systems Acute medical concerns: No Medical Review of Systems: unchanged Mental Status Exam Mental Status Exam Patient Appearance: Appropriate Patient Orientation: Person, Place, Time and Situation Level of Consciousness: Alert Patient Behavior: Guarded, Avoidant and Isolative Mood Description: Withdrawn, Depressed, Fearful, Anxious and Apprehensive Affect Description: Flat Patient Cognition Impaired: No Ability to Follow Directions: Good Speech Pattern: Spontaneous Speech Memory Description: Episodic Impaired Hallucinations: None Delusions: Not Present Perceptual Disturbances: Depersonalization and Derealization Thought Process: Distracted and Goal Oriented Thought Content: positive for Goal Oriented, positive for Preoccupation and positive for Suicidal Ideation Depressive Symptoms: Increased Anxiety, Increased Irritability, Thoughts of /Suicide and Difficulty Concentrating Judgement: Fair Diagnostics Vital Signs (24Hr): Vital Signs - 24 hr 12/09/20 18:00 12/09/20 20:42 12/10/20 16:28 Temperature 97.4 F 98.2 F Pulse Rate 70 70 99 Respiratory Rate 18 Blood Pressure 122/88 122/88 117/75 Pulse Oximetry 99 Body Mass Index 22.7 Labs Results: 12/09/20 08:13 12/09/20 08:13 Labs: Laboratory Results - last 48 hr 12/09/20 12/09/20 12/09/20 08:13 08:13 08:13 WBC 9.9 RBC 3.86 L Hgb 12.1 Hct 36.8 L MCV 95.3 MCH 31.3 MCHC 32.9 RDW 12.0 Plt Count 228 MPV 10.0 Immature Gran % (Auto) 0.3 Neut % (Auto) 61.5 Lymph % (Auto) 25.8 [place] % (Auto) 8.5 Eos % (Auto) 3.4 Baso % (Auto) 0.5 Lymph # (Auto) 2.6 [place] # (Auto) 0.8 Eos # (Auto) 0.3 Baso # (Auto) 0.1 Abs Immat Gran (auto) 0.03 Absolute Neuts (auto) 6.1 Absolute Nucleated RBC 0.000 Nucleated RBC % (auto) 0.0 Sodium 140 Potassium 4.4 Chloride 107 Carbon Dioxide 27 Anion Gap 10 L BUN 13 Creatinine 1.01 Estim Creat Clear Calc 63.9 Estimated GFR > 60 Random Glucose 85 Estimat Average Glucose 88 Hemoglobin A1c % 4.7 Calcium 9.4 Total Bilirubin 0.4 AST 21 ALT 17 Alkaline Phosphatase 60 Total Protein 6.8 Albumin 4.1 Triglycerides 64 Cholesterol 156 LDL Cholesterol, Calc 93 HDL Cholesterol 51 Vitamin B12 Folate TSH 1.18 12/09/20 08:13 WBC RBC Hgb Hct MCV MCH MCHC RDW Plt Count MPV Immature Gran % (Auto) Neut % (Auto) Lymph % (Auto) [place] % (Auto) Eos % (Auto) Baso % (Auto) Lymph # (Auto) [place] # (Auto) Eos # (Auto) Baso # (Auto) Abs Immat Gran (auto) Absolute Neuts (auto) Absolute Nucleated RBC Nucleated RBC % (auto) Sodium Potassium Chloride Carbon Dioxide Anion Gap BUN Creatinine Estim Creat Clear Calc Estimated GFR Random Glucose Estimat Average Glucose Hemoglobin A1c % Calcium Total Bilirubin AST ALT Alkaline Phosphatase Total Protein Albumin Triglycerides Cholesterol LDL Cholesterol, Calc HDL Cholesterol Vitamin B12 555 Folate 14.7 TSH Medications Medications Current Medications Generic Name Dose Route Start Last Admin Trade Name Freq PRN Reason Stop Dose Admin Acetaminophen 650 mg 12/04/20 22:38 12/07/20 09:30 Acetaminophen 325 Mg Tablet PO 650 mg Q6H PRN Administration Headache/Pain Mild Scale (1-3) Al Hydroxide/Mg Hydroxide 30 ml 12/04/20 22:38 Magnesium Hydrox/Alum Hydrox 30 Ml Oral.Susp PO Q6H PRN Heartburn/Nausea Buprenorphine/Naloxone 1 film 12/11/20 09:00 Buprenorphine/Naloxone 8/2 Mg Film SUBLINGUAL 12/11/20 09:01 ONCE ONE Buprenorphine/Naloxone 1 film 12/12/20 09:00 Buprenorphine/Naloxone 8/2 Mg Film SUBLINGUAL BID MY Clonazepam 1 mg 12/05/20 09:00 12/10/20 14:31 Clonazepam 1 Mg Tablet PO 1 mg TID MY Administration Gabapentin 600 mg 12/08/20 17:00 12/10/20 16:09 Gabapentin 600 Mg Tablet PO 600 mg QID MY Administration Hydroxyzine HCl 25 mg 12/04/20 22:38 12/09/20 10:34 Hydroxyzine Hcl 25 Mg Tablet PO 25 mg Q6H PRN Administration Anxiety Magnesium Hydroxide 30 ml 12/04/20 22:38 Milk Of Magnesia 30 Ml Oral.Susp PO DAILY PRN Constipation Nicotine 21 mg 12/05/20 09:00 12/10/20 08:15 Nicotine 21 Mg Patch.Td24 TRANSDERMA 21 mg DAILY MY Administration Nortriptyline HCl 25 mg 12/05/20 21:00 12/09/20 20:40 Nortriptyline Hcl 25 Mg Capsule PO 25 mg BEDTIME MY Administration Olanzapine 5 mg 12/10/20 10:50 12/10/20 16:09 Olanzapine 5 Mg Tablet PO 5 mg Q4H PRN Administration agitation Prazosin HCl 2 mg 12/05/20 21:00 12/09/20 20:42 Prazosin Hcl 1 Mg Capsule PO 2 mg BEDTIME MY Administration Protocol Topiramate 25 mg 12/05/20 09:00 12/10/20 08:12 Topiramate 25 Mg Tablet PO 25 mg BID MY Administration Trazodone HCl 150 mg 12/05/20 21:00 12/09/20 20:40 Trazodone Hcl 50 Mg Tablet PO 150 mg BEDTIME MY Administration Ziprasidone 60 mg 12/10/20 21:00 Ziprasidone 60 Mg Capsule PO BID MY Allergies Allergies Allergy/AdvReac Type Severity Reaction Status Date / Time No Known Allergies Allergy Unverified 12/04/20 22:36 Assessment & Plan Assessment & Plan (1) Polysubstance (including opioids) dependence w/o physiol dependence: Status: Acute Code(s): F19.20 - Other psychoactive substance dependence, uncomplicated Assessment and Plan: Patient has longstanding history of crystal meth use, heroin use, and OTC medication abuse. She reports she has received Suboxone in the past with positive affect at maintaining abstinence. She also reports she has taken Vivitrol in the past, but that it was not as effective as the Suboxone. She is requesting to be placed back on Suboxone while here, and to be bridged to a clinic in [place] upon discharge. Discussed Suboxone induction with patient. Patient was also encouraged to reach out to [facility] in [place], and to consider participation in recovery coaching program, as well as 12 step or other types of support groups. Assessment and Plan: Increase Geodon to 60 mg bid Increase Olanzapine to 5 mg q 4 hours prn. Greater than 50% of the session was spent on counseling and/or coordination of care Patient educated on: diagnosis, medication risk/benefits and therapeutic strategies Informed Consent: understands and further education needed Reason for contiued inpatient stay Substantial Risk for: harm to self, inability to function and rapid decompensation
[2020-12-10 18:41] VITALS: BP 119/81; PULSE 111
[2020-12-11] MEDS: Acetaminophen 325 MG TABLET 650 MG PO ×2 (01:26→16:22)
[2020-12-11] MEDS: hydrOXYzine HCL 25 MG TABLET PO (01:26)
[2020-12-11] MEDS: Ziprasidone 60 MG CAPSULE PO (08:38)
[2020-12-11] MEDS: clonazePAM 1 MG TABLET PO ×2 (08:38→20:59)
[2020-12-11] MEDS: Nicotine 21 MG PATCH.TD24 TRANSDERMA (08:38)
[2020-12-11] MEDS: Topiramate 25 MG TABLET PO ×2 (08:38→20:59)
[2020-12-11] MEDS: Buprenorphine/Naloxone 8/2 mg FILM 1 FILM SUBLINGUAL (08:38)
[2020-12-11] MEDS: Gabapentin 600 MG TABLET PO ×3 (08:38→21:00)
--- NOTE | 2020-12-11 12:06 | HO.PSYCHPN ---
Subjective Subjective Date of Service: 12/11/20 Reason For Visit: SI, Intentional OD Subjective Notes: 3 Day Healthcare Proxy: No Guardianship: No Interim History: Pt demonstating sx of being overmedicated. Klonopin decreased to 1 mg bid from 1 mg tid, Gabapentin decreased from 600 mg qid to 600 mg tid, Atarax prn decreased to bid, Olanzapine prn decreased to bid and Geodon decreased to 40 mg bid. Consultation with Joy Blackman NP of addictions who has seen pt a few times today. Initially Suboxone decreased to 2 mg bid, now on hold due to sedation per Joy's recommendation. Pt seen x [id number] able to discuss her plan of care with other team members at different times today. Medication Compliance: Yes Side effects from medications: Yes (oversedation) Attending Groups: No Review of Systems Acute medical concerns: Yes oversedation Medical Review of Systems: unchanged Review of Systems Review of Systems Yes Unobtainable due to mental status Psychiatric: Reports anxiety Mental Status Exam Mental Status Exam Patient Appearance: Fatigued Patient Orientation: Person, Place and Situation Level of Consciousness: Drowsy, Sedated and Lethargic Patient Behavior: Passive, Fatigued, Isolative and Poor Eye Contact Mood Description: Flat Affect Description: Flat Patient Cognition Impaired: Yes Ability to Follow Directions: Fair Speech Pattern: Slurred, Impoverished, Difficulty Finding Words and Soft-Spoken Memory Description: Remote Impaired and Episodic Impaired Hallucinations: None Delusions: Not Present Thought Process: Incoherent Thought Content: positive for Poverty of Content and positive for Incoherent Depressive Symptoms: Sleeping More Than Usual, Increased Fatigue and Loss of Energy Judgement: Fair Diagnostics Vital Signs (24Hr): Vital Signs - 24 hr 12/10/20 16:28 12/10/20 18:41 Temperature 98.2 F Pulse Rate 99 111 H Blood Pressure 117/75 119/81 Body Mass Index 22.7 Labs Results: 12/09/20 08:13 12/09/20 08:13 Medications Medications Current Medications Generic Name Dose Route Start Last Admin Trade Name Freq PRN Reason Stop Dose Admin Acetaminophen 650 mg 12/04/20 22:38 12/11/20 01:26 Acetaminophen 325 Mg Tablet PO 650 mg Q6H PRN Administration Headache/Pain Mild Scale (1-3) Al Hydroxide/Mg Hydroxide 30 ml 12/04/20 22:38 Magnesium Hydrox/Alum Hydrox 30 Ml Oral.Susp PO Q6H PRN Heartburn/Nausea Buprenorphine/Naloxone 1 tab 12/12/20 09:00 Buprenorphine/Naloxone 2/0.5mg Tab.Subl SUBLINGUAL BID MY Clonazepam 1 mg 12/11/20 21:00 Clonazepam 1 Mg Tablet PO BID MY Gabapentin 600 mg 12/11/20 15:00 Gabapentin 600 Mg Tablet PO TID MY Hydroxyzine HCl 25 mg 12/11/20 10:13 Hydroxyzine Hcl 25 Mg Tablet PO BID PRN Anxiety Magnesium Hydroxide 30 ml 12/04/20 22:38 Milk Of Magnesia 30 Ml Oral.Susp PO DAILY PRN Constipation Nicotine 21 mg 12/05/20 09:00 12/11/20 08:38 Nicotine 21 Mg Patch.Td24 TRANSDERMA 21 mg DAILY MY Administration Nortriptyline HCl 25 mg 12/05/20 21:00 12/10/20 20:11 Nortriptyline Hcl 25 Mg Capsule PO Not Given BEDTIME MY Olanzapine 5 mg 12/11/20 10:14 Olanzapine 5 Mg Tablet PO BID PRN agitation Prazosin HCl 2 mg 12/05/20 21:00 12/10/20 20:11 Prazosin Hcl 1 Mg Capsule PO Not Given BEDTIME MY Protocol Topiramate 25 mg 12/05/20 09:00 12/11/20 08:38 Topiramate 25 Mg Tablet PO 25 mg BID MY Administration Trazodone HCl 150 mg 12/05/20 21:00 12/10/20 20:12 Trazodone Hcl 50 Mg Tablet PO Not Given BEDTIME MY Ziprasidone 40 mg 12/11/20 21:00 Ziprasidone 40 Mg Capsule PO BID MY Allergies Allergies Allergy/AdvReac Type Severity Reaction Status Date / Time No Known Allergies Allergy Unverified 12/04/20 22:36 Assessment & Plan Assessment & Plan (1) Bipolar 1 disorder: Status: Acute Code(s): F31.9 - Bipolar disorder, unspecified Assessment and Plan: Pt presenting today as being overmedicated. Klonopin decreased to 1 mg bid Gabapentin decreased to 600 mg tid Atarax decreased to bid prn Olanzapine decreased to bid prn Geodon decreased to 40 mg bid Pt will need re-eval for dose retitration. At this time we will hold Suboxone. (2) Generalized anxiety disorder: Status: Acute Code(s): F41.1 - Generalized anxiety disorder (3) Polysubstance (including opioids) dependence w/o physiol dependence: Status: Acute Code(s): F19.20 - Other psychoactive substance dependence, uncomplicated Greater than 50% of the session was spent on counseling and/or coordination of care Informed Consent: does not understand (too sedate at this time) Reason for contiued inpatient stay Substantial Risk for: harm to self, inability to function, rapid decompensation and med/psych decompensation
--- NOTE | 2020-12-11 12:13 | MHC.RECOVRN ---
T/w met with pt to f/u after Suboxone initiation. Pt received 4/1mg on 12/10 and 8/2mg on 12/11 with plan to increase to 8/2mg BID on 12/12. Upon entering pts room, pt sleeping. T/w turned on pts light and stated pts name with no response. Pt arousable to loud voice. Pt sedated and unable to engage in meaningful conversation. Pt, however, able to acknowledge [facility] in [place], [place] as appropriate place to continue Suboxone as pt is returning to [place] to live with partner. T/w spoke to [facility] and informed t/w that referrals are not necessary or needed. Pt is to walk in to the facility to initiate care. Hours are 10-2 Monday-Monday. Address is [address] [place] [address] in [place]. Case discussed with [facility] as well as Joy Blackman APRN. ?
--- NOTE | 2020-12-11 16:53 | P.PNADD_ITS ---
Subjective Subjective Date of Service: 12/11/20 Reason For Visit: SI, Intentional OD Interim History: Patient seen in follow up Started on Suboxone yesterday. Recieved 4mg yesterday and 8mg this morning At time of follow up eval patient appearing very sedated. Unable to keep her eyes open and unable to participate in interview. Observed in the unit asleep sitting up with phone in her hand. Easily awakened. Review of Systems Review of Systems Yes Unobtainable due to mental status Mental Status Exam Mental Status Exam Level of Consciousness: Sedated Patient Behavior: Sedated Diagnostics Vital Signs (24Hr): Vital Signs - 24 hr 12/10/20 18:41 Pulse Rate 111 H Blood Pressure 119/81 Body Mass Index 22.7 Labs Results: 12/09/20 08:13 12/09/20 08:13 Medications Medications Current Medications Generic Name Dose Route Start Last Admin Trade Name Freq PRN Reason Stop Dose Admin Acetaminophen 650 mg 12/04/20 22:38 12/11/20 16:22 Acetaminophen 325 Mg Tablet PO 650 mg Q6H PRN Administration Headache/Pain Mild Scale (1-3) Al Hydroxide/Mg Hydroxide 30 ml 12/04/20 22:38 Magnesium Hydrox/Alum Hydrox 30 Ml Oral.Susp PO Q6H PRN Heartburn/Nausea Clonazepam 1 mg 12/11/20 21:00 Clonazepam 1 Mg Tablet PO BID MY Gabapentin 600 mg 12/11/20 15:00 12/11/20 14:11 Gabapentin 600 Mg Tablet PO 600 mg TID MY Administration Hydroxyzine HCl 25 mg 12/11/20 10:13 Hydroxyzine Hcl 25 Mg Tablet PO BID PRN Anxiety Magnesium Hydroxide 30 ml 12/04/20 22:38 Milk Of Magnesia 30 Ml Oral.Susp PO DAILY PRN Constipation Nicotine 21 mg 12/05/20 09:00 12/11/20 08:38 Nicotine 21 Mg Patch.Td24 TRANSDERMA 21 mg DAILY MY Administration Nortriptyline HCl 25 mg 12/05/20 21:00 12/10/20 20:11 Nortriptyline Hcl 25 Mg Capsule PO Not Given BEDTIME MY Olanzapine 5 mg 12/11/20 10:14 Olanzapine 5 Mg Tablet PO BID PRN agitation Prazosin HCl 2 mg 12/05/20 21:00 12/10/20 20:11 Prazosin Hcl 1 Mg Capsule PO Not Given BEDTIME MY Protocol Topiramate 25 mg 12/05/20 09:00 12/11/20 08:38 Topiramate 25 Mg Tablet PO 25 mg BID MY Administration Trazodone HCl 150 mg 12/05/20 21:00 12/10/20 20:12 Trazodone Hcl 50 Mg Tablet PO Not Given BEDTIME MY Ziprasidone 40 mg 12/11/20 21:00 Ziprasidone 40 Mg Capsule PO BID MY Allergies Allergies Allergy/AdvReac Type Severity Reaction Status Date / Time No Known Allergies Allergy Unverified 12/04/20 22:36 Assessment & Plan Assessment & Plan (1) Polysubstance (including opioids) dependence w/o physiol dependence: Status: Acute Code(s): F19.20 - Other psychoactive substance dependence, uncomplicated Assessment and Plan: * d/c suboxone secondary to level of sedation * base don history, not at risk for withdrawal so no concern regarding discontinuation. * per RN patient due to d/c Monday, follow up with outpatient provider regarding restarting suboxone * please d/c with naloxone 30 mins coordinating, discussing care and several visits to unit to observe patient. Greater than 50% of the session was spent on counseling and/or coordination of care
[2020-12-11 18:00] VITALS: BP 117/69; PULSE 98; RESP 16; TEMP 36.9; O2SAT 98
[2020-12-11 20:59] VITALS: BP 134/78; PULSE 90
[2020-12-11] MEDS: Prazosin HCL 1 MG CAPSULE 2 MG PO (20:59)
[2020-12-11] MEDS: Ziprasidone 40 MG CAPSULE PO (21:00)
[2020-12-11] MEDS: traZODone HCL 50 MG TABLET 150 MG PO (21:00)
[2020-12-11] MEDS: Nortriptyline HCl 25 MG CAPSULE PO (21:00)
[2020-12-12] MEDS: Acetaminophen 325 MG TABLET 650 MG PO ×2 (05:01→14:51)
[2020-12-12 06:00] VITALS: BP 108/65; PULSE 120; RESP 16; TEMP 37.2; O2SAT 93
[2020-12-12] MEDS: clonazePAM 1 MG TABLET PO ×2 (09:05→21:32)
[2020-12-12] MEDS: Gabapentin 600 MG TABLET PO ×3 (09:05→21:31)
[2020-12-12] MEDS: Ziprasidone 40 MG CAPSULE PO ×2 (09:05→21:32)
[2020-12-12] MEDS: Nicotine 21 MG PATCH.TD24 TRANSDERMA (09:05)
[2020-12-12] MEDS: Topiramate 25 MG TABLET PO ×2 (09:05→21:32)
[2020-12-12] MEDS: OLANZapine 5 MG TABLET PO (09:55)
[2020-12-12 18:00] VITALS: BP 102/67; PULSE 93; RESP 16; TEMP 36.2
[2020-12-12 21:31] VITALS: BP 133/78; PULSE 85
[2020-12-12] MEDS: Prazosin HCL 1 MG CAPSULE 2 MG PO (21:31)
[2020-12-12] MEDS: Nortriptyline HCl 25 MG CAPSULE PO (21:32)
[2020-12-12] MEDS: traZODone HCL 50 MG TABLET 150 MG PO (21:32)
--- NOTE | 2020-12-13 00:29 | P.PNPSI_ITS ---
Subjective Subjective Date of Service: 12/12/20 Reason For Visit: SI, Intentional OD Subjective Notes: [place] Warning, Conditional Voluntary and 3 Day Healthcare Proxy: No Guardianship: No Medical Problems Affecting Mental Status: No Interim History: Patient seen and discussed with team. Has been on enhances safety checks, 5 min due to head banging behavior. Her medications have been recently adjusted due to hypersomnolencse in the day. Patient evaluated this morning and upon interview she reports she is doing okay. Has been lying in bed, somewhat isolative today. Says I dont understand why they increase and decrease [her medications] and they got rid of suboxone. Discussed her daytime sedation and risks of polypharmacy for respiratory depression, says is not satisfied with this but declined further discussing her medications, saying it doesnt matter. She is unable to identify alleviating factors other than all i can do is sleep, that's all im gonna do. Says her appetite is low. Mood is not good. ? In the milieu, patient is isolative in her room, no recent head banging behavior, she does appear more alert in the daytime and sleeps at night. Denies SI/SIB/HI upon inquiry. Endorses irritability, denies assaultive ideation. Says she feels safe. Medication Compliance: Yes Side effects from medications: No Attending Groups: No Review of Systems Medical Review of Systems: unchanged Mental Status Exam Mental Status Exam Narrative: A&O. Unkempt appearance, not malodorous, normal body habitus. Poor eye contact, attentive. No Tics or Tremors. No abnormal involuntary movements. Calm, guarded, difficult to engage. Non-pressured speech, spontaneous with regular rate and rhythm, normal volume and prosody. No prolonged speech latency or dysarthria. Mood is ?not good,? affect is irritable. Denies SI/SIB/HI upon inquiry. Denies A/VH or delusional thought content. Thoughts are coherent, organized. No known cognitive or memory impairment. Insight/ Judgment fair and adequate. Diagnostics Vital Signs (24Hr): Vital Signs - 24 hr 12/12/20 06:00 12/12/20 18:00 12/12/20 21:31 Temperature 99.0 F 97.1 F Pulse Rate 120 H 93 85 Respiratory Rate 16 16 Blood Pressure 108/65 102/67 133/78 Pulse Oximetry 93 Body Mass Index 22.7 Labs Results: 12/09/20 08:13 12/09/20 08:13 Medications Medications Current Medications Generic Name Dose Route Start Last Admin Trade Name Kain PRN Reason Stop Dose Admin Acetaminophen 650 mg 12/04/20 22:38 12/12/20 14:51 Acetaminophen 325 Mg Tablet PO 650 mg Q6H PRN Administration Headache/Pain Mild Scale (1-3) Al Hydroxide/Mg Hydroxide 30 ml 12/04/20 22:38 Magnesium Hydrox/Alum Hydrox 30 Ml Oral.Susp PO Q6H PRN Heartburn/Nausea Clonazepam 1 mg 12/11/20 21:00 12/12/20 21:32 Clonazepam 1 Mg Tablet PO 1 mg BID MY Administration Gabapentin 600 mg 12/11/20 15:00 12/12/20 21:31 Gabapentin 600 Mg Tablet PO 600 mg TID MY Administration Hydroxyzine HCl 25 mg 12/11/20 10:13 Hydroxyzine Hcl 25 Mg Tablet PO BID PRN Anxiety Magnesium Hydroxide 30 ml 12/04/20 22:38 Milk Of Magnesia 30 Ml Oral.Susp PO DAILY PRN Constipation Nicotine 21 mg 12/05/20 09:00 12/12/20 09:05 Nicotine 21 Mg Patch.Td24 TRANSDERMA 21 mg DAILY MY Administration Nortriptyline HCl 25 mg 12/05/20 21:00 12/12/20 21:32 Nortriptyline Hcl 25 Mg Capsule PO 25 mg BEDTIME MY Administration Olanzapine 5 mg 12/11/20 10:14 12/12/20 09:55 Olanzapine 5 Mg Tablet PO 5 mg BID PRN Administration agitation Prazosin HCl 2 mg 12/05/20 21:00 12/12/20 21:31 Prazosin Hcl 1 Mg Capsule PO 2 mg BEDTIME MY Administration Protocol Topiramate 25 mg 12/05/20 09:00 12/12/20 21:32 Topiramate 25 Mg Tablet PO 25 mg BID MY Administration Trazodone HCl 150 mg 12/05/20 21:00 12/12/20 21:32 Trazodone Hcl 50 Mg Tablet PO 150 mg BEDTIME MY Administration Ziprasidone 40 mg 12/11/20 21:00 12/12/20 21:32 Ziprasidone 40 Mg Capsule PO 40 mg BID MY Administration Allergies Allergies Allergy/AdvReac Type Severity Reaction Status Date / Time No Known Allergies Allergy Unverified 12/04/20 22:36 Assessment & Plan Assessment & Plan (1) Polysubstance (including opioids) dependence w/o physiol dependence: Status: Acute Code(s): F19.20 - Other psychoactive substance dependence, uncomplicated Assessment and Plan: Addiction consult appreciated. Per consult notes: * d/c suboxone secondary to level of sedation * per RN patient due to d/c Monday, follow up with outpatient provider regarding restarting suboxone * please d/c with naloxone Pt presenting as being overmedicated. Klonopin decreased to 1 mg bid Gabapentin decreased to 600 mg tid Atarax decreased to bid prn Olanzapine decreased to bid prn Geodon decreased to 40 mg bid 12/12: No changes to med regimen, will monitor for benefit Greater than 50% of the session was spent on counseling and/or coordination of care Reason for contiued inpatient stay Substantial Risk for: rapid decompensation and med/psych decompensation
[2020-12-13] MEDS: Magnesium Hydrox/Alum Hydrox 30 ML ORAL.SUSP PO (00:45)
[2020-12-13] MEDS: Acetaminophen 325 MG TABLET 650 MG PO (00:45)
[2020-12-13 06:00] VITALS: BP 100/64; PULSE 125; TEMP 36.5; O2SAT 95
[2020-12-13] MEDS: Nicotine 21 MG PATCH.TD24 TRANSDERMA (09:44)
[2020-12-13] MEDS: Topiramate 25 MG TABLET PO ×2 (09:44→22:04)
[2020-12-13] MEDS: clonazePAM 1 MG TABLET PO ×2 (09:44→22:04)
[2020-12-13] MEDS: Ziprasidone 40 MG CAPSULE PO ×2 (09:44→22:04)
[2020-12-13] MEDS: Gabapentin 600 MG TABLET PO ×3 (09:44→22:03)
[2020-12-13] MEDS: OLANZapine 5 MG TABLET PO (10:36)
--- NOTE | 2020-12-13 15:08 | P.PNPSI_ITS ---
Subjective Subjective Date of Service: 12/13/20 Reason For Visit: SI, Intentional OD Subjective Notes: [place] Warning, Conditional Voluntary and 3 Day Healthcare Proxy: No Guardianship: No Medical Problems Affecting Mental Status: No Interim History: Patient seen and discussed with team. Has been on enhances safety checks, 5 min due to head banging behavior. Her medications have been recently adjusted due to hypersomnolence in the day. clinical staff anesthesiologist report sedation in day is improved, she is more engaged and has mild insight. Utilized PRN olanzapine this morning for agitation. Patient evaluated this morning and upon interview she reports im okay. Says im still early in recovering, but i've seen a change in myself already. Mood is good. Sleep is good. Says I just need to talk to my therapist and psychiatrist, they are out in [facility]. Continues to report not liking her klonopin being decreased to BID vs TID but she is accepting of the rationale. ? In the milieu, patient is isolative in her room, no recent head banging behavior, she does appear more alert in the daytime and sleeps at night. Denies SI/SIB/HI upon inquiry. Denies irritability, denies assaultive ideation. Says she feels safe. Medication Compliance: Yes Side effects from medications: No Attending Groups: No Review of Systems Medical Review of Systems: unchanged Mental Status Exam Mental Status Exam Narrative: A&O. Unkempt appearance, not malodorous, normal body habitus. Poor eye contact, attentive. No Tics or Tremors. No abnormal involuntary movements. Calm, guarded, difficult to engage. Non-pressured speech, spontaneous with regular rate and rhythm, normal volume and prosody. No prolonged speech latency or dysarthria. Mood is ?good,? affect is euthymic. Denies SI/SIB/HI upon inquiry. Denies A/VH or delusional thought content. Thoughts are coherent, organized. No known cognitive or memory impairment. Insight/ Judgment fair and adequate. Diagnostics Vital Signs (24Hr): Vital Signs - 24 hr 12/12/20 18:00 12/12/20 21:31 12/13/20 06:00 Temperature 97.1 F 97.7 F Pulse Rate 93 85 125 H Respiratory Rate 16 Blood Pressure 102/67 133/78 100/64 Pulse Oximetry 95 Body Mass Index 22.7 Labs Results: 12/09/20 08:13 12/09/20 08:13 Medications Medications Current Medications Generic Name Dose Route Start Last Admin Trade Name Arielq PRN Reason Stop Dose Admin Acetaminophen 650 mg 12/04/20 22:38 12/13/20 00:45 Acetaminophen 325 Mg Tablet PO 650 mg Q6H PRN Administration Headache/Pain Mild Scale (1-3) Al Hydroxide/Mg Hydroxide 30 ml 12/04/20 22:38 12/13/20 00:45 Magnesium Hydrox/Alum Hydrox 30 Ml Oral.Susp PO 30 ml Q6H PRN Administration Heartburn/Nausea Clonazepam 1 mg 12/11/20 21:00 12/13/20 09:44 Clonazepam 1 Mg Tablet PO 1 mg BID MY Administration Gabapentin 600 mg 12/11/20 15:00 12/13/20 14:14 Gabapentin 600 Mg Tablet PO 600 mg TID MY Administration Hydroxyzine HCl 25 mg 12/11/20 10:13 Hydroxyzine Hcl 25 Mg Tablet PO BID PRN Anxiety Magnesium Hydroxide 30 ml 12/04/20 22:38 Milk Of Magnesia 30 Ml Oral.Susp PO DAILY PRN Constipation Nicotine 21 mg 12/05/20 09:00 12/13/20 09:44 Nicotine 21 Mg Patch.Td24 TRANSDERMA 21 mg DAILY MY Administration Nortriptyline HCl 25 mg 12/05/20 21:00 12/12/20 21:32 Nortriptyline Hcl 25 Mg Capsule PO 25 mg BEDTIME MY Administration Olanzapine 5 mg 12/11/20 10:14 12/13/20 10:36 Olanzapine 5 Mg Tablet PO 5 mg BID PRN Administration agitation Prazosin HCl 2 mg 12/05/20 21:00 12/12/20 21:31 Prazosin Hcl 1 Mg Capsule PO 2 mg BEDTIME MY Administration Protocol Topiramate 25 mg 12/05/20 09:00 12/13/20 09:44 Topiramate 25 Mg Tablet PO 25 mg BID MY Administration Trazodone HCl 150 mg 12/05/20 21:00 12/12/20 21:32 Trazodone Hcl 50 Mg Tablet PO 150 mg BEDTIME MY Administration Ziprasidone 40 mg 12/11/20 21:00 12/13/20 09:44 Ziprasidone 40 Mg Capsule PO 40 mg BID MY Administration Allergies Allergies Allergy/AdvReac Type Severity Reaction Status Date / Time No Known Allergies Allergy Unverified 12/04/20 22:36 Assessment & Plan Assessment & Plan (1) Polysubstance (including opioids) dependence w/o physiol dependence: Status: Acute Code(s): F19.20 - Other psychoactive substance dependence, uncomplicated Assessment and Plan: Addiction consult appreciated. Per consult notes: * d/c suboxone secondary to level of sedation * per RN patient due to d/c Monday, follow up with outpatient provider regarding restarting suboxone * please d/c with naloxonePt presenting as being overmedicated. Klonopin decreased to 1 mg bid Gabapentin decreased to 600 mg tid Atarax decreased to bid prn Olanzapine decreased to bid prn Geodon decreased to 40 mg bid 12/12: No changes to med regimen, will monitor for benefit 12/13: No changes to med regimen, will monitor for benefit Greater than 50% of the session was spent on counseling and/or coordination of care Reason for contiued inpatient stay Substantial Risk for: rapid decompensation and med/psych decompensation
[2020-12-13 18:00] VITALS: BP 111/75; PULSE 96; RESP 18; TEMP 37; O2SAT 98
[2020-12-13] MEDS: hydrOXYzine HCL 25 MG TABLET PO (18:30)
[2020-12-13] MEDS: traZODone HCL 50 MG TABLET 150 MG PO (22:03)
[2020-12-13 22:04] VITALS: BP 111/75; PULSE 96
[2020-12-13] MEDS: Nortriptyline HCl 25 MG CAPSULE PO (22:04)
[2020-12-13] MEDS: Prazosin HCL 1 MG CAPSULE 2 MG PO (22:04)
[2020-12-14 06:00] VITALS: BP 104/65; PULSE 96; RESP 16; TEMP 36.3; O2SAT 94
[2020-12-14] MEDS: Topiramate 25 MG TABLET PO (08:53)
[2020-12-14] MEDS: Gabapentin 600 MG TABLET PO (08:53)
[2020-12-14] MEDS: clonazePAM 1 MG TABLET PO (08:53)
[2020-12-14] MEDS: Ziprasidone 40 MG CAPSULE PO (08:53)
[2020-12-14] MEDS: Nicotine 21 MG PATCH.TD24 TRANSDERMA (08:56)
[2020-12-14] MEDS: OLANZapine 5 MG TABLET PO (09:39)
--- NOTE | 2020-12-22 15:09 | P.DS_ITS ---
DS: Providers Provider Date of Service: 12/14/20 <Luzma Blairroxi BROKERAGE CLERK - Last Filed: 12/22/20 15:27> Date of admission: 12/04/20 21:43 <Luzma Blairroxi, BROKERAGE CLERK - Last Filed: 12/22/20 15:27> Date of discharge: 12/14/20 <Luzma Mayerramos, BROKERAGE CLERK - Last Filed: 12/22/20 15:27> Primary care physician: Unknown Physician <Luzma Mayerramos, BROKERAGE CLERK - Last Filed: 12/22/20 15:27> Admitting clinician: Glory Gallardo <Luzma Paredes, BROKERAGE CLERK - Last Filed: 12/22/20 15:27> Attending physician on admission: Bassam Painting <Luzma Mayerramos, BROKERAGE CLERK - Last Filed: 12/22/20 15:27> Consults: 12/04/20 22:38 Consult to Hospitalist Routine Consulting Provider: Hospitalist Reason For Exam: New Admit from [place] [facility] 12/10/20 10:33 Addiction Medicine Routine Consulting Provider: Joy Blackman Reason for consultation: Pt interested in Suboxone therapy. Has provider been notified: No <Luzma Mayerramos, BROKERAGE CLERK - Last Filed: 12/22/20 15:27> Attending physician on discharge: Bassam Painting <Luzma Mayerramos, BROKERAGE CLERK - Last Filed: 12/22/20 15:27> Discharging clinician: Luzma Paredes <Luzma Hart MariposaEric, BROKERAGE CLERK - Last Filed: 12/22/20 15:27> DS: Diagnosis Discharge Diagnosis (1) Bipolar disorder, curr episode mixed, severe, w/o psychotic features: Status: Acute <Luzma Paredes APRN - Last Filed: 12/22/20 15:27> (2) Polysubstance (including opioids) dependence w/o physiol dependence: Status: Acute <Luzma Paredes APRN - Last Filed: 12/22/20 15:27> (3) Generalized anxiety disorder: Status: Acute <Luzma Norton-Wonkka, BROKERAGE CLERK - Last Filed: 12/22/20 15:27> DS: Medications Discharge Medications Home Medications: Previous Rx's Medication Instructions Recorded nicotine 21 mg/24 hr daily 21 mg TRANSDERMAL DAILY #30 ea 12/14/20 transdermal patch nortriptyline 25 mg capsule 25 mg PO BEDTIME #5 cap 12/14/20 prazosin 1 mg capsule 2 mg PO BEDTIME #10 cap 12/14/20 topiramate 25 mg tablet 25 mg PO BID #10 tab 12/14/20 trazodone 150 mg tablet 150 mg PO BEDTIME #10 tab 12/14/20 ziprasidone HCl 40 mg capsule 40 mg PO BID #10 cap 12/14/20 <Luzma Paredes, BROKERAGE CLERK - Last Filed: 12/22/20 15:27> Mental Status Exam Mental Status Exam Narrative: A&O. Unkempt appearance, not malodorous, normal body habitus. Poor eye contact, attentive. No Tics or Tremors. No abnormal involuntary movements. Calm, guarded, difficult to engage. Non-pressured speech, spontaneous with regular rate and rhythm, normal volume and prosody. No prolonged speech latency or dysarthria. Mood is ?good,? affect is euthymic. Denies SI/SIB/HI upon inquiry. Denies A/VH or delusional thought content. Thoughts are coherent, organized. No known cognitive or memory impairment. Insight/ Judgment fair and adequate. <Luzma Tanner Lena, BROKERAGE CLERK - Last Filed: 12/22/20 15:27> DS: Summary Hospital Course Hospital Course: 40 yo female s/p motrin overdose in a suicide attempt. This was her third suicide attempt within the week via OD. Recent in pt discharge. Pt reported she has been going to different programs to attempt to get the help/housing she needs but has not found what is helpful at this time. She is transferred from [facility]. Pt reported a history of bipolar disorder and substance abuse. Pt worked with nursing and social service teams on symptom managment and aftercare planning. Several medication changes were completed as pt presented as overmedicated on pre-existing dosages. Suboxone initiation/trial was stopped due to pt's lack of tolerance for the trial and appearing overmedicated. Team worked with pt to find out patient options in [facility] as she planned to return to her partner's home. Appointments were scheduled on 12/15 for therapy and medications. <Luzma MayerVITOR beasley - Last Filed: 12/22/20 15:27> Time spent discussing smoking cessation with patient: 3 to 10 minutes <Luzma MayerANALY beasleyN - Last Filed: 12/22/20 15:27> Status at Discharge Cognitive/behavioral status at discharge: non-psychotic, non-suicidal <Luzma MayerVITOR beasley - Last Filed: 12/22/20 15:27> Functional status at discharge: independent ambulation <Luzma MayerVITOR beasley - Last Filed: 12/22/20 15:27> Overall status at discharge: patient is progressing back to baseline <Luzma NortonRoderickLeninVITOR beasley - Last Filed: 12/22/20 15:27> Time Spent with Patient Time attestation: Total time spent providing and/or coordinating discharge services: 35 <Luzma MayerVITOR beasley - Last Filed: 12/22/20 15:27> Time spent: Greater than 30 minutes <Luzma MayerVITOR beasley - Last Filed: 12/22 15:27> Discharge Plan Discharge Patient Disposition: Home, Self-Care <Luzma NortonRoderickLeninVITOR beasley - Last Filed: 12/22/20 15:27> Discharge Diagnosis: Bipolar Disorder Opioid Use disorder severe <Luzmaanselmo Paredes APRN - Last Filed: 12/22/20 15:27> Bipolar Disorder Opioid Use disorder severe <Bassam Painting MD - Last Filed: 12/28/20 11:26> Referrals: [facility], suboxone clinic, [place] [Other] - 1 Week (this is walk-in clinic, they do not accept referral to make an appointment. Walk-in hours are Monday through Monday, 10 a.m. to 2 p.m. [facility] will provide bridge prescription.) Reji Carlos, dinesh, [place] [Other] - 12/15/20 10:30 am (A tour of the program is set up for 10:30 a.m. on , at the above address. Castillo at [facility] confirmed that once she does the tour and enrolls in the program, they will help her find a therapist.) Ryan Sage APRN, [facility], [place] [Other] - 12/15/20 10:45 am (Telehealth) DREW [facility]IRE[facility] [Other] - 12/21/20 1:20 pm (IN OFFICE) <Luzma Paredes APRN - Last Filed: 12/22/20 15:27> Discharge Medications: New prazosin 1 mg Capsule 2 mg PO BEDTIME Qty: 10 RF: 0 topiramate 25 mg Tablet 25 mg PO BID Qty: 10 RF: 0 nortriptyline 25 mg Capsule 25 mg PO BEDTIME Qty: 5 RF: 0 nicotine 21 mg/24 hr Patch 24 Hour 21 mg transdermal DAILY Qty: 30 RF: 0 trazodone 150 mg tablet 150 mg PO BEDTIME Qty: 10 RF: 0 ziprasidone HCl 40 mg Capsule 40 mg PO BID Qty: 10 RF: 0 <Luzma Paredes APRN - Last Filed: 12/22/20 15:27> Discharge Orders: Discharge Order (Routine); Ordered 12/14/20 Ordered By: Tereza Heck <Luzma Paredes APRN - Last Filed: 12/22/20 15:27> Diet: regular diet <Luzma Paredes APRN - Last Filed: 12/22/20 15:27> regular diet <Bassam Painting MD - Last Filed: 12/28/20 11:26> Activity on Discharge: As tolerated <Luzma Paredes APRN - Last Filed: 12/22/20 15:27> As tolerated <Bsasam Painting MD - Last Filed: 12/28/20 11:26> Stand Alone Forms: Patient Portal Discharge page, Community Support <Luzma Paredes APRN - Last Filed: 12/22/20 15:27> Care Plan Goals: 1. Maintain mood 2. No SI/HI 3. harm reduction- pt given take home narcan <Luzma Paredes APRN - Last Filed: 12/22/20 15:27> Health Concerns: 1. follow up with PCP <Luzma Paredes APRN - Last Filed: 12/22/20 15:27> Plan of Treatment: 1. take medications as prescribed. 2. Go to ED or call 911 in event of emergency. <Luzma Paredes APRN - Last Filed: 12/22/20 15:27> Assessment: No SI/HI. Mood stable, less sedated. No signs of aggression towards self or others. <Luzma Paredes APRN - Last Filed: 12/22/20 15:27> Discharge Date/Time: 12/14/20 14:32 <Luzma Paredes APRN - Last Filed: 12/22/20 15:27>
== END 2020-12-14 14:32 | disposition home or self-care (01) | DRG 753 ==
PROVIDERS: Admitting Provider Psychiatry & Neurology Psychiatry; Visit Provider Clinical Nurse Specialist Psychiatric/Mental Health, Adult
DX: F31.9 Bipolar disorder, unspecified (principal); R45.851 Suicidal ideations; F19.20 Other psychoactive substance dependence, uncomplicated; F41.1 Generalized anxiety disorder; Z59.0 Homelessness; F17.210 Nicotine dependence, cigarettes, uncomplicated; Z71.6 Tobacco abuse counseling; Z79.899 Other long term (current) drug therapy
CPT/HCPCS: 36415; 80053; 80061; 82607; 82746; 83036; 84443; 85025; 93005; J2060; J3230

== ENCOUNTER 2022-06-09 12:03 | Emergency (ER) | payer BC, MEDICAID, SELFPAY ==
[2022-06-09 12:08] VITALS: BP 130/90; O2SAT 100
[2022-06-09 12:30] VITALS: BP 127/72; PULSE 53; RESP 18; TEMP 36.9; O2SAT 98; BMI 27.4
--- NOTE | 2022-06-09 13:07 | ED_ITS ---
HPI - Psych General Chief Complaint: Psychiatric Symptoms Stated Complaint: SI,DEPRESSED X'S DAYS FROM [facility] PER EMS Time Seen by Provider: 06/09/22 12:25 Source: patient and EMS Mode of arrival: EMS Limitations: no limitations History of Present Illness HPI Narrative: 41-year-old female with a history of bipolar disorder, polysubstance abuse presents to the ER with complaints of increasing depression, suicidal thoughts with no plan. No homicidal ideations, hallucinations. Patient reports history of former opiate abuse. She is currently on Suboxone. Patient denies any additional substance use. No physical complaints other than headache which she contributes to her chronic migraines. Related Data Previous Rx's Medication Instructions Recorded nicotine 21 mg/24 hr daily 21 mg transdermal DAILY #30 ea 12/14/20 transdermal patch nortriptyline 25 mg capsule 25 mg PO BEDTIME #5 caps 12/14/20 prazosin 1 mg capsule 2 mg PO BEDTIME #10 caps 12/14/20 topiramate 25 mg tablet 25 mg PO BID #10 tabs 12/14/20 trazodone 150 mg tablet 150 mg PO BEDTIME #10 tabs 12/14/20 ziprasidone HCl 40 mg capsule 40 mg PO BID #10 caps 12/14/20 Allergies Allergy/AdvReac Type Severity Reaction Status Date / Time No Known Allergies Allergy Unverified 12/04/20 22:36 Review of Systems Review of Systems: Yes all other systems are reviewed and are negative Constitutional: Constitutional: Reports no additional constitutional complaints, Denies body ache(s), Denies chills, Denies fever(s), Denies headache(s) and Denies weakness Eyes: Eyes: Reports no additional eye complaints and Denies change in vision ENT: Reports system reviewed and no additional complaints, except as documented, Denies dizziness, Denies headache(s), Denies nasal congestion, Denies nasal discharge and Denies neck pain Cardiovascular: Cardiovascular: Reports no additional cardiovascular complaints, Denies chest pain, Denies leg edema and Denies dyspnea Respiratory: Respiratory: Reports no additional respiratory complaints, Denies cough and Denies dyspnea Gastrointestinal: Gastrointestinal: Reports no additional gastrointestinal complaints, Denies abdominal pain, Denies diarrhea, Denies nausea and Denies vomiting Genitourinary: Genitourinary: Reports no additional female genitourinary complaints and Denies urinary incontinence Musculoskeletal: Musculoskeletal: Reports no additional musculoskeletal complaints, Denies back pain, Denies arthralgias, Denies joint swelling, Denies neck pain, Denies numbness and Denies tingling Integumentary/Breasts: Skin/Breast: Reports system reviewed and no additional complaints, except as docu and Denies rash Neurologic: Reports system reviewed and no additional complaints, except as documented, Denies Abnormal speech present, Denies dizziness, Denies headache(s), Denies numbness, Denies tingling and Denies weakness Psychiatric: Psychiatric: Reports depression and Reports suicidal ideation [facility] Past Medical History Attestation statement: The following information was validated with the patient. Source: old records reviewed and nursing notes reviewed Medical History No significant medical problems Surgical History History of cholecystectomy Social History Social History Household Members: None Housing: Homeless Do you presently have visiting nurse or other home services: No Patient Tobacco Use Status: Current everyday Tobacco user Tobacco use type: Cigarette Cigarette Packs Per Day: 1 Cigarettes Per Day: 20.0 Years Smoked: 20 Smoked in Last 30 Days: Yes Second Hand Smoke Exposure: Yes Substance Use Type: Marijuana and Methamphetamine Advance Directives: No Advance Directives Information Provided: Yes Patient : No service: No Sexual orientation: Cisgender Physical Exam Vital Signs: Vital Signs: Last Vital Signs Temp 98.4 F 06/09/22 12:30 Pulse 53 06/09/22 12:30 Resp 18 06/09/22 12:30 BP 127/72 06/09/22 12:30 Pulse Ox 98 06/09/22 12:30 O2 Del Method 06/09/22 12:30 BMI result Body Mass Index 27.4 Const: General: cooperative, healthy appearing, comfortable and no acute distress Orientation/consciousness: patient oriented x3 Limitations: no limitations HEENT: Head: Yes normal to inspection Ears: hearing grossly normal bilaterally General nose exam: Normal external nose present Face and sinus: Yes normal facial exam Mouth: Normal oral and palatal mucosa present Throat: Yes posterior oropharynx normal Eyes: General: appearance normal, both eyes and all related structures Pupils: Equal, round and reactive pupils present Neck: Neck: Yes normal visual inspection Chest: Chest palpation & inspection: normal inspection of the chest Resp: Effort & Inspection: normal respiratory effort Auscultation: clear to auscultation bilaterally Cardio: Rate: regular rate Rhythm: regular rhythm Peripheral pulses: Peripheral pulses 2+ throughout GI: Inspection: Yes normal to inspection Palpation (GI): Soft to palpation and nontender Auscultation: normal bowel sounds Back/Spine/Pelvis: Thoracic/Lumbar Spine: thoracic and lumbar spine normal to inspection Skin: General skin exam: no rashes or lesions noted Neuro: General: patient oriented x3, no focal motor deficits and normal sensation to monofilament Cranial nerves: Yes Equal, round and reactive pupils present Cognition (Neuro): normal cognition Speech: No Abnormal speech present Gait exam (Neuro): Normal gait present Motor exam (neuro): 5/5 motor strength present throughout Extrem: General: Yes normal to inspection Course Course Course Narrative: Patient was refusing lab work. Nursing will try again shortly. Patient placed in physician observation as she is pending a care team evaluation. Sign out to night team pending above Medications Administered Discontinued Medications Generic Name Dose Route Start Last Admin Trade Name Freq PRN Reason Stop Dose Admin Acetaminophen/Butalbital/Caffeine 1 tab 06/09/22 13:06 06/09/22 14:03 Butalb/Acetamin/Caff 50/325/40 Tablet PO 06/09/22 13:07 1 tab ONCE ONE Administration Nicotine 21 mg 06/09/22 13:06 06/09/22 14:02 Nicotine 21 Mg Patch.[id number] TRANSDERMA 06/09/22 13:07 21 mg ONCE ONE Administration Medical Decision Making Medical Decision Making [facility] Narrative: 42 yo female here with complaints of increasing depression, vague suicidal thoughts with no plan. No concern for acute ingestion or trauma Patient will need labs, drug screen, COVID screen, crisis consultation. Differential Diagnosis Differential Diagnoses: The differential diagnosis associated with the presentation includes Lab Data 06/09/22 15:32 06/09/22 15:32 Labs: Lab Results 06/09/22 06/09/22 06/09/22 Range/Units 12:53 12:53 12:53 Sodium (135-145) mmol/L Potassium (3.3-5.1) mmol/L Chloride (96-108) mmol/L Carbon Dioxide (22-29) mmol/L Anion Gap (12-20) BUN (9-16) mg/dL Creatinine (0.5-1.4) mg/dL Estim Creat Clear Calc Estimated GFR Random Glucose (60-115) mg/dL Calcium (8.4-10.2) mg/dL Urine Color Yellow Urine Appearance Turbid Urine pH 6.0 (5.0-9.0) Ur Specific [place] 1.015 (1.005-1.025) Urine Protein 30 (1+) H (Neg-Trace) mg/dL Urine Glucose (UA) Negative (Negative) mg/dL Urine Ketones Negative (Negative) mg/dL Urine Blood Small (1+) H (Negative) Urine Nitrite Negative (Negative) Ur Leukocyte Esterase Large (3+) H (Negative) Urine RBC 3-5 H (0-2) /HPF Urine WBC >50 H (0-5) /HPF Ur Squamous Epith Cells >20 (0-2) /HPF Urine Bacteria 3+ (None Seen) Hyaline Casts 0-2 (0-2) /LPF Urine Trichomonas Present Urine Test NEGATIVE (NEGATIVE) Urine Opiates Screen (Not Detect) Urine Fentanyl Screen (Not Detect) Ur Barbiturates Screen (Not Detect) Ur Phencyclidine Scrn (Not Detect) Ur Amphetamines Screen (Not Detect) U Benzodiazepines Scrn (Not Detect) Urine Cocaine Screen (Not Detect) U Marijuana (THC) Screen (Not Detect) Ethyl Alcohol mg/dL COVID-19 ([facility]ADONNA) Negative (Negative) COVID-19 Clin Com See Note 06/09/22 06/09/22 06/09/22 Range/Units 12:53 15:32 15:32 Sodium 147 H (135-145) mmol/L Potassium 3.3 D (3.3-5.1) mmol/L Chloride 116 H (96-108) mmol/L Carbon Dioxide 24 (22-29) mmol/L Anion Gap 10 L (12-20) BUN 10 (9-16) mg/dL Creatinine 0.81 (0.5-1.4) mg/dL Estim Creat Clear Calc 88.3 Estimated GFR > 60 Random Glucose 97 (60-115) mg/dL Calcium 9.0 (8.4-10.2) mg/dL Urine Color Urine Appearance Urine pH (5.0-9.0) Ur Specific [place] (1.005-1.025) Urine Protein (Neg-Trace) mg/dL Urine Glucose (UA) (Negative) mg/dL Urine Ketones (Negative) mg/dL Urine Blood (Negative) Urine Nitrite (Negative) Ur Leukocyte Esterase (Negative) Urine RBC (0-2) /HPF Urine WBC (0-5) /HPF Ur Squamous Epith Cells (0-2) /HPF Urine Bacteria (None Seen) Hyaline Casts (0-2) /LPF Urine Trichomonas Urine Test (NEGATIVE) Urine Opiates Screen Not Detected (Not Detect) Urine Fentanyl Screen Not Detected (Not Detect) Ur Barbiturates Screen Not Detected (Not Detect) Ur Phencyclidine Scrn Not Detected (Not Detect) Ur Amphetamines Screen Not Detected (Not Detect) U Benzodiazepines Scrn Not Detected (Not Detect) Urine Cocaine Screen Not Detected (Not Detect) U Marijuana (THC) Screen Not Detected (Not Detect) Ethyl Alcohol < 10 mg/dL COVID-19 ([facility]ADONNA) (Negative) COVID-19 Clin Com Discharge Plan Discharge Clinical Impression: Depression Patient Disposition: Still a Patient Prescriptions: No Action prazosin 1 mg Capsule 2 mg PO BEDTIME Qty: 10 0RF Protocol: Hold for SBP< HOLD for SBP < : 90 topiramate 25 mg Tablet 25 mg PO BID Qty: 10 0RF nortriptyline 25 mg Capsule 25 mg PO BEDTIME Qty: 5 0RF nicotine 21 mg/24 hr Patch 24 Hour 21 mg transdermal DAILY Qty: 30 0RF trazodone 150 mg tablet 150 mg PO BEDTIME Qty: 10 0RF ziprasidone HCl 40 mg Capsule 40 mg PO BID Qty: 10 0RF Interventions: Starr-Suicide Risk Severity Scale Last Done: 06/09/22 15:45
[2022-06-09 13:14] LABS: Appearance Urine Turbid; Color Urine Yellow; Glucose Urine UA Negative (Negative); Leukocyte Esterase Urine Large (3+) (Negative); Nitrite Urine Negative (Negative); Specific Gravity - Urine 1.015 (1.005-1.025); UMIC TRIGGER UACC YES; Urine Blood Small (1+) (Negative); Urine Ketones Negative (Negative); Urine Protein 30 (1+) mg/dL (Neg-Trace)
[2022-06-09 13:15] LABS: UPreg QC Valid YES; Urine Pregnancy NEGATIVE (NEGATIVE)
[2022-06-09 13:23] LABS: Bacteria Urine 3+ (None Seen); Hyaline Casts Urine 0-2 /LPF (0-2); Squamous Epithelial Cell Urine >20 /HPF (0-2); UACC Culture Trigger YES; WBC Urine >50 /HPF (0-5)
[2022-06-09 13:26] LABS: COVID-19 Test Negative (Negative); IDNOW Serial# BCCEAD1C
[2022-06-09] MEDS: Nicotine 21 MG PATCH.TD24 TRANSDERMA (14:02)
[2022-06-09] MEDS: Butalb/Acetamin/Caff 50/325/40 TABLET 1 TAB PO (14:03)
[2022-06-09 14:08] LABS: Trichomonas Urine Present
[2022-06-09 14:56] LABS: Amphetamine Screen Urine Not Detected (Not Detect); Barbiturates, Urine Not Detected (Not Detect); Benzodiazepines Screen Urine Not Detected (Not Detect); Cannabinoid Screen Urine Not Detected (Not Detect); Cocaine Screen Urine Not Detected (Not Detect); Fentanyl, urine Not Detected (Not Detect); Opiate Screen Urine Not Detected (Not Detect); Phencyclidine Screen Urine Not Detected (Not Detect)
[2022-06-09 16:02] LABS: Anion Gap 10 (12-20); Blood Urea Nitrogen 10 mg/dL (9-16); Carbon Dioxide 24 mmol/L (22-29); Chloride 116 mmol/L (96-108); Creatinine Clr Calc Pharmacy 88.3; Estimated Glomerular Filt Rate > 60; Glucose Random 97 mg/dL (60-115); Potassium 3.3 mmol/L (3.3-5.1); Sodium 147 mmol/L (135-145)
--- NOTE | 2022-06-09 16:05 | MHC.EDTECH ---
pt refused t/w for cbc recollect at this time. t/w asked if pt would be amenable to attempt in a few hours. pt agrees. will reapproach later.
[2022-06-09 16:07] LABS: Ethanol < 10 mg/dL
[2022-06-09] MEDS: metroNIDAZOLE 500 MG TABLET PO ×2 (18:03→19:46)
[2022-06-09] MEDS: Nitrofurantoin Monohyd/M-Cryst 100 MG CAPSULE PO (19:46)
[2022-06-09 20:41] LABS: Basophils Absolute Auto 0.1 X10*3/uL (0.0-0.2); Basophils Percent Auto 0.6 % (0-2); Eosinophils Absolute Auto 0.2 X10*3/uL (0.0-0.4); Eosinophils Percent Auto 2.5 % (0-4); Hematocrit 38.2 % (37.0-47.0); Hemoglobin 12.7 g/dl (12.0-16.0); Imm Gran Abs Auto 0.02 X10*3/uL (0.00-0.03); Imm Gran Pct Auto 0.2 % (0.0-0.4); Lymphocytes Absolute Auto 3.1 X10*3/uL (1.2-4.9); Lymphocytes Percent Auto 33.3 % (20-40); Mean Corpuscular HGB Conc 33.2 g/dl (31.0-35.0); Mean Corpuscular Hemoglobin 29.7 pg (27.0-33.0); Mean Corpuscular Volume 89.5 fL (80.0-98.0); Mean Platelet Volume 11.4 fL (9.4-12.3); Monocytes Absolute Auto 0.5 X10*3/uL (0.1-1.2); Monocytes Percent Auto 5.8 % (2-11); Neutrophils Absolute Auto 5.3 x10*3/uL (2.0-8.3); Neutrophils Percent Auto 57.6 % (45-73); Platelet Count 229 X10*3/uL (160-400); Red Blood Count 4.27 X10*6/uL (4.20-5.50); Red Cell Distribution Width 13.7 % (11.0-16.0); White Blood Count 9.3 X10*3/uL (4.8-10.8)
[2022-06-09 20:46] LABS: MANUAL DIFF FLAG NO
[2022-06-10 03:36] VITALS: BP 116/47; PULSE 49; RESP 15; TEMP 36.6; O2SAT 99
--- NOTE | 2022-06-10 05:39 | PC.NURSE ---
Patient slept through the night, no distress observed/reported, behavior non concerning, disposition per care team is voluntary inpatient bed search, med rec completed/pending provider's approval, Patient is + for UTI/Macrobid and Flagyl 500 mg/BID initiated for treatment, patient compliant, VSS, will continue to monitor.
[2022-06-10 07:58] VITALS: BP 125/69; PULSE 57; RESP 17; TEMP 36.3; O2SAT 97
[2022-06-10] MEDS: Nitrofurantoin Monohyd/M-Cryst 100 MG CAPSULE PO (08:44)
[2022-06-10] MEDS: metroNIDAZOLE 500 MG TABLET PO (08:44)
--- NOTE | 2022-06-10 10:25 | PC.NURSE ---
Pt c/o ARREOLA, tylenol ordered.
[2022-06-10] MEDS: Acetaminophen 325 MG TABLET 975 MG PO (10:32)
[2022-06-10] MEDS: Topiramate 100 MG TABLET 200 MG PO (10:32)
[2022-06-10] MEDS: Sertraline HCL 100 MG TABLET 200 MG PO (10:33)
[2022-06-10] MEDS: Ziprasidone 40 MG CAPSULE PO (10:35)
[2022-06-10] MEDS: Gabapentin 300 MG CAPSULE PO (16:44)
--- NOTE | 2022-06-10 17:29 | PC.NURSE ---
Pt calm and cooperative through day, ate all meals, no behavioral issues noted.
--- NOTE | 2022-06-10 17:42 | MHC.CARE ---
Bedsearch completed for pt, pt was accepted to [facility] for tonight (06/10)
--- NOTE | 2022-06-10 18:52 | PC.NURSE ---
Pt to be transferred to [facility]
== END 2022-06-10 19:34 ==
PROVIDERS: Emergency Provider Emergency Medicine Emergency Medical Services
DX: F33.1 Major depressive disorder, recurrent, moderate (principal); R45.851 Suicidal ideations; F17.210 Nicotine dependence, cigarettes, uncomplicated; Z20.822 Contact with and (suspected) exposure to COVID-19; Z20.828 Contact with and (suspected) exposure to other viral communicable diseases; Z71.6 Tobacco abuse counseling; Z79.899 Other long term (current) drug therapy
CPT/HCPCS: 36415; 80048; 80307; 81001; 81025; 82077; 85025; 87086; 87635; 99285; S9485